=== PATIENT | male | born 1945 | race Caucasian/White ===

== ENCOUNTER 2020-05-01 20:08 | Emergency (ER) | payer MEDICARE, SELFPAY ==
--- NOTE | ~2020-05-01 | XR_ITS ---
EXAMINATION: XR chest 1V portable DATE: 05/01/2020 20:59 INDICATION: Shortness of breath. TECHNIQUE: A single frontal view of the chest was obtained. COMPARISON: CT abdomen and pelvis 06/18/2013 FINDINGS: There are patchy airspace opacities in all lung zones bilaterally. No pleural effusion or p neumothorax. The heart size is normal. IMPRESSION: 1. Diffuse lung disease, likely pneumonia such as COVID-19 pneumonia. Reviewed, dictated and finalized at location A. F LOCK OPERATOR
[2020-05-01 20:11] VITALS: BP 171/78; PULSE 67; RESP 20; TEMP 37.5; O2SAT 95
--- NOTE | 2020-05-01 20:24 | PC.NURSE ---
freda is the daughter [phone]
--- NOTE | 2020-05-01 20:44 | ECG_ITS ---
Measurements Intervals [place] Rate: 63 P: 52 SD: 174 QRS: -19 QRSD: 138 T: 26 QT: 388 QTc: 399 Interpretive Statements SINUS RHYTHM INTRAVENTRICULAR CONDUCTION DELAY BASELINE ARTIFACT- I, II, III, AVR, AVL, AVF BORDERLINE ECG Electronically Signed On 05-02-2020 6:50:06 FARM WORKER by Micheal Cárdenas D.O.
[2020-05-01 21:20] LABS: Basophils Percent Auto 0.2 % (0.2-1.2); Eosinophils Percent Auto 0.3 % (0-4.4); Hematocrit 37.2 % (42.0-52.0); Immature Granulocyte Absolute 0.08 K/mm3 (0.00-0.031); Immature Granulocyte Percent A 1.3 % (0-0.5); Lymphocytes Absolute Auto 1.15 K/mm3 (0.9-3.2); Lymphocytes Percent Auto 18.8 % (18.3-44.2); Mean Corpuscular HGB Conc 34.9 g/dl (32-36); Mean Corpuscular Volume 91.6 fl (80-100); Mean Platelet Volume 8.8 fl (7.4-10.4); Monocytes Absolute Auto 0.7 K/mm3 (0.1-0.6); Monocytes Percent Auto 10.8 % (2.6-8.5); Neutrophils Absolute Auto 4.2 K/mm3 (1.3-6.7); Neutrophils Percent Auto 68.6 % (45.5-73.1); Platelet Count Result 205 k/mm3 (150-375); Red Blood Count 4.06 M/mm3 (4.6-6.20); White Blood Count 6.1 K/mm3 (4.5-10.0)
[2020-05-01 21:33] LABS: Anion Gap 6 mmol/L (8-16); Blood Urea Nitrogen 17 mg/dL (9-20); Calcium 8.7 mg/dL (8.4-10.2); Carbon Dioxide 27 mmol/L (22-30); Chloride 95 mmol/L (98-107); Estimated CRCL calculation 62 ml/min; Estimated Glomerular Filt Rate > 60; Glucose 104 mg/dL (75-110); Potassium 4.6 mmol/L (3.4-5.0); Sodium 128 mmol/L (137-145)
--- NOTE | 2020-05-01 21:38 | ED.URI ---
HPI - URI/Sore Throat General Chief Complaint: Upper Respiratory Infection Stated Complaint: cough, + COVID, feeling worse Time Seen by Provider: 05/01/20 21:37 Source: patient Mode of arrival: ambulatory Limitations: no limitations History of Present Illness HPI Narrative: Patient is a 74 year-old male complaining of cough, nonproductive, fatigue, body aches started 1 week ago, diagnosed with Covid 4 days ago, felt better after getting a steroid shot by his doctor, but symptoms recurred today. Denies any chest pain, shortness of breath, abdominal pain, nausea vomiting diarrhea or fever. Related Data Home Medications Medication Instructions Recorded Confirmed albuterol sulfate [Ventolin HFA] INHALATION 05/01/20 amlodipine-benazepril cap 05/01/20 05/01/20 famotidine 05/01/20 lorazepam 05/01/20 omeprazole 05/01/20 pravastatin 05/01/20 promethazine-codeine ml 05/01/20 trazodone 05/01/20 Allergies Allergy/AdvReac Type Severity Reaction Status Date / Time No Known Allergies Allergy Unknown Verified 05/01/20 20:16 Review of Systems Review of Systems: All systems reviewed & are unremarkable except as noted in HPI and below Constitutional: Constitutional: Denies body ache(s), Denies chills, Denies excessive sweating, Denies fever(s), Denies headache(s), Denies lethargy, Denies weakness and Denies weight loss Eyes: Eyes: Denies blurry vision, Denies change in vision and Denies loss of vision ENT: Denies dizziness, Denies ear discharge, Denies headache(s), Denies lip swelling, Denies epistaxis, Denies nasal congestion, Denies neck pain, Denies throat swelling and Denies tongue swelling Cardiovascular: Cardiovascular: Denies chest pain, Denies chest pain at rest, Denies chest pain with activity, Denies diaphoresis, Denies rapid heart rate, Denies edema, Denies irregular heart rhythm, Denies lightheadedness, Denies palpitations, Denies dyspnea and Denies dyspnea on exertion Respiratory: Respiratory: Denies chest congestion, Denies hemoptysis, Denies dyspnea and Denies dyspnea on exertion Gastrointestinal: Gastrointestinal: Denies abdominal pain, Denies melena, Denies hematochezia, Denies diarrhea, Denies nausea, Denies vomiting and Denies hematemesis Musculoskeletal: Musculoskeletal: Denies abnormal gait, Denies deformity, Denies joint swelling, Denies limited range of motion, Denies neck pain and Denies numbness Neurologic: Denies Abnormal speech present, Denies abnormal gait, Denies confusion, Denies dizziness, Denies headache(s), Denies focal weakness, Denies loss of vision, Denies numbness, Denies Other visual disturbances, Denies Sensory deficit (Neuro) and Denies weakness Psychiatric: Psychiatric: Denies confusion, Denies depression, Denies auditory hallucinations, Denies homicidal ideation and Denies suicidal ideation Endocrine: Endocrine: Denies cold intolerance, Denies excessive sweating, Denies fatigue, Denies heat intolerance and Denies palpitations Hematologic/Lymphatic: Hematologic/Lymphatic: Denies easy bleeding and Denies easy bruising Allergic/Immunologic: Allergic/Immunologic: Denies lip swelling, Denies throat swelling and Denies tongue swelling PMFSH Family History Family History (Updated 02/21/14 @ 07:13 by DOCTOR UNKNOWN) Mother Family history of lymphoma Father Family history of malignant neoplasm Social History Social History Alcohol intake: current Gender identity (if verbalized by the patient): Male Exam Const: General: cooperative, healthy appearing, comfortable, no acute distress, well developed, alert and awake; No confusion Orientation/consciousness: oriented to person, oriented to place, oriented to time, patient oriented x3 and No confusion Limitations: no limitations HENMT: Head: normal to inspection, normocephalic and atraumatic Ears: hearing grossly normal bilaterally, TM normal on the right and TM normal on the left General nose exam: Normal external nose
[2020-05-01 22:11] VITALS: O2SAT 96
--- NOTE | 2020-05-01 22:13 | PC.NURSE ---
Per pt. permission. Updated pt. daughter Kassy on pt. status.
--- NOTE | 2020-05-01 22:13 | PC.NURSE ---
PT. [facility] number [phone]
[2020-05-01 22:31] VITALS: BP 142/95; PULSE 72; RESP 17; O2SAT 96
[2020-05-01 22:45] VITALS: BP 142/90; PULSE 70; RESP 17; O2SAT 98
== END 2020-05-01 22:45 | disposition home or self-care (01) ==
PROVIDERS: Emergency Medicine; Emergency Provider Emergency Medicine; PCP Internal Medicine
DX: U07.1 COVID-19 (principal); J12.89 Other viral pneumonia
CPT/HCPCS: 36415; 71045; 80048; 85025; 93005; 96372; 99284; J1100

== ENCOUNTER 2021-09-09 08:43 | Inpatient (IN) | payer MEDICARE, SELFPAY ==
[2021-09-09] VITALS (10 sets, daily range): BP systolic 142–161; BP diastolic 65–82; PULSE 49–65; RESP 16–97; TEMP 36.2–36.9; O2SAT 94–99; BMI 33.0
--- NOTE | 2021-09-09 | ECHO_ITS ---
Patient Info Name: Garrett Gifford Age: 76 years : 1945 Gender: Male Ht: 70 in Wt: 230 lbs BSA: 2.30 m2 HR: 59 bpm BP: 103 / 69 mmHg Technical Quality: Fair Exam Date: 09/09/2021 2:34 PM Exam Location: [facility] Pulmonary Exam Room: [facility] Patient Status: Outpatient Admit Date: 09/09/2021 Staff Ordering Physician: Bhanu Smith MD Airplane And Engine Inspector: Naz Moreno RDCS Attending Provider: Kartik Culver MD Exam Type: CA echo doppler color flow Study Info Indications - CHF Complete two-dimensional, color flow and Doppler transthoracic echocardiogram is performed. Summary 1. Complete two-dimensional, color flow and Doppler transthoracic echocardiogram is performed. 2. Left ventricular chamber dimension is normal. 3. Left ventricular systolic function is normal, estimated at 60-65%. 4. There is mildly increased left ventricular wall thickness. 5. The left ventricular diastolic function is grade I diastolic dysfunction. 6. E/e' 9 is minimally elevated. 7. Left atrial chamber dimension is mildly enlarged. 8. There is mild aortic valve sclerosis. 9. There is mild mitral valve regurgitation. 10. No pulmonary hypertension, estimated pulmonary arterial systolic pressure is 25 mmHg. Left Ventricle E/e' 9 is minimally elevated. Left ventricular chamber dimension is normal. Left ventricular systolic function is normal, estimated at 60-65%. There is mildly increased left ventricular wall thickness. The left ventricular diastolic function is grade I diastolic dysfunction. Right Ventricle Right ventricular chamber dimension is normal. Right ventricular systolic function is normal. Left Atria Left atrial chamber dimension is mildly enlarged. Right Atria Right atrial chamber dimension is normal. Aortic Valve The aortic valve is trileaflet. There is mild aortic valve sclerosis. There is no aortic valve stenosis. There is no aortic valve regurgitation. Pulmonic Valve There is no pulmonic regurgitation. Mitral Valve There is no mitral valve stenosis. There is mild mitral valve regurgitation. Tricuspid Valve There is no tricuspid valve regurgitation. No pulmonary hypertension, estimated pulmonary arterial systolic pressure is 25 mmHg. Pericardium/Pleural There is no pericardial effusion. Inferior Vena Cava Normal inferior vena cava with >50% collapse upon inspiration consistent with normal right atrial pressure, 5 mmHg. Aorta The aortic root size at the sinus of Valsalva is normal. Left Ventricular Outflow Tract Name Value Normal LVOT 2D LVOT Diameter 2.2 cm LVOT Doppler LVOT Peak Velocity 108 cm/s LVOT Peak Gradient 5 mmHg LVOT Mean Gradient 3 mmHg LVOT VTI 20 cm LVOT VTI/AV VTI Ratio 1.0 LVOT Stroke Volume 75 ml LVOT CO 17.2 l/min LVOT CI 7.5 l/min/m2 Mitral Valve
[2021-09-09 10:10] LABS: Hematocrit 41.5 % (42.0-52.0); Hemoglobin 14.2 g/dL (14.0-18.0); Mean Corpuscular HGB Conc 34.2 g/dl (32-36); Mean Corpuscular Hemoglobin 32.3 pg (26-34); Mean Corpuscular Volume 94.3 fl (80-100); Mean Platelet Volume 9.4 fl (7.4-10.4); Platelet Count Result 182 k/mm3 (150-375); Red Cell Distribution Width 13.8 % (11.5-14.5); White Blood Count 7.9 K/mm3 (4.5-10.0)
[2021-09-09 10:20] LABS: INR 1.8; Prothrombin Time 19.8 Seconds (11.1-14.7)
[2021-09-09 10:21] LABS: Partial Thromboplastin Time 38.8 SECONDS (22.3-36.8)
[2021-09-09 10:24] LABS: Alanine Aminotransferase 27 U/L (4-50); Albumin Level 4.1 g/dL (3.5-5.1); Alkaline Phosphatase 44 U/L (38-126); Anion Gap 6 mmol/L (8-16); Aspartate Amino Transferase 34 U/L (17-59); Bilirubin,Total 0.7 mg/dL (0.2-1.3); Blood Urea Nitrogen 17 mg/dL (9-20); Calcium 8.9 mg/dL (8.4-10.2); Carbon Dioxide 28 mmol/L (22-30); Chloride 104 mmol/L (98-107); Estimated Glomerular Filt Rate > 60; Glucose 131 mg/dL (65-110); Magnesium 2.1 mg/dL (1.6-2.3); Potassium 4.7 mmol/L (3.4-5.0); Sodium 138 mmol/L (137-145)
[2021-09-09 10:39] LABS: Troponin I 0.013 ng/mL (0.000-0.034)
--- NOTE | 2021-09-09 10:52 | ECG_ITS ---
Measurements Intervals [place] Rate: 57 P: 35 AL: 196 QRS: -30 QRSD: 136 T: 20 QT: 420 QTc: 410 Interpretive Statements SINUS BRADYCARDIA LEFT BUNDLE BRANCH BLOCK [120+ ms QRS DURATION, 80+ ms Q/S IN V1/V2, 85+ ms R IN I/aVL/V5/V6] COMPARED TO ECG 05/01/2020 21:21:56 SINUS BRADYCARDIA NOW PRESENT LEFT BUNDLE-BRANCH BLOCK NOW PRESENT Electronically Signed On 09-09-2021 13:14:13 CDT by Stefania Vilchis M.D.
--- NOTE | 2021-09-09 12:23 | PM.CNCAR ---
Assessment and Plan Assessment and plan (1) PAF (paroxysmal atrial fibrillation): Code(s): I48.0 - Paroxysmal atrial fibrillation Status: Acute Assessment and Plan: In normal rhythm now but has intermittent palpitations. Stop Metoprolol. Start Sotalol 80 mg BID and anticipate he will be here for 2 nights monitoring. Obtain EKG 1-2 hours after each dose. Start Eliquis 5 mg BID. [id number] 3. Obtain echo. (2) Hypersomnia: Code(s): G47.10 - Hypersomnia, unspecified Status: Acute Assessment and Plan: Will need outpatient sleep study. (3) Dyslipidemia: Code(s): E78.5 - Hyperlipidemia, unspecified Status: Acute Assessment and Plan: On Pravastatin and Fish Oil. (4) Hypertension: Code(s): I10 - Essential (primary) hypertension Status: Acute Assessment and Plan: Stable. History of Present Illness History of Present Illness Consult date/time: 09/09/21 12:23 Reason for consult: Atrial fibrillation. 76 yr old man who I saw for first time last week as an outpatient consult and PCP is Dr. Paz presented to [facility] last night for palpitations. He has a history of hypertension, dyslipidemia, Covid pneumonia. He reports having palpitations last night and went to [facility] and it was noted he was in rapid atrial fib at 130's bpm. He was then transferred here for further management. Currently he is back in sinus rhythm at 60 bpm. His fiance is at bedside. Reports he noted palpitations the last 2 months every 2 weeks lasting minutes. He admits to snoring, waking up frequently and daytime sleepiness. He is limited at walking about 1-2 blocks due to AMIN. Reports edema of both legs is constant. Denies orthopnea, PND, dizziness, chest pain, sob. Cardiovascular Procedures Echo/MUGA:: 07/01/15 Echo: EF 60%, grade II diastolic dysfunction (E/e' 11), mild LAE, mild MR, trace TR/PI, Aortic root 4. 3cm. Electrophysiology:: 09/01/21 EKG: Sinus bradycardia at 44 bpm, first degree AV block, LBBB. 05/04/21 EKG: Sinus bradycardia at 50 bpm, PVC, IVCD. Stress Tests:: 07/01/14 Lexiscan myoview: negative. Reason For Visit: Atrial Fibrillation Review of Systems Review of Systems: All systems reviewed & are unremarkable except as noted in HPI and below Constitutional: Constitutional: Reports as per HPI, Denies chills, Reports daytime sleepiness, Reports difficulty sleeping, Denies fatigue and Reports snoring Cardiovascular: Cardiovascular: Reports as per HPI, Denies chest pain, Reports irregular heart rhythm, Denies leg edema and Denies lightheadedness Respiratory: Respiratory: Reports as per HPI and Reports dyspnea Gastrointestinal: Gastrointestinal: Reports as per HPI and Denies abdominal pain Genitourinary: Genitourinary: Reports as per HPI and Denies dysuria Musculoskeletal: Musculoskeletal: Reports as per HPI Neurologic: Reports as per HPI, Denies dizziness and Denies syncope [facility] Family History Family History Mother Family history of lymphoma Father Family history of malignant neoplasm Social History Social History Smoking status: Never smoker Alcohol intake: current Gender identity (if verbalized by the patient): Male Meds Home Medications and Allergies Home Medications Medication Instructions Recorded Confirmed Type lorazepam 05/01/20 09/01/21 History omeprazole 05/01/20 09/01/21 History pravastatin 05/01/20 09/01/21 History metoprolol succinate 25 mg 25 mg PO DAILY #30 tablet 09/01/21 09/01/21 Rx tablet,extended release 24 hr Glucosamine Chondroitin 1 cap PO DAILY 09/09/21 09/09/21 History omega-3 fatty acids-fish oil 1,360 mg PO DAILY 09/09/21 09/09/21 History Allergies Allergy/AdvReac Type Severity Reaction Status Date / Time No Known Allergies Allergy Unknown Verified 09/01/21 13:19 Vital Signs Vi
[2021-09-09] MEDS: SOTALOL HCL 80 MG TABLET PO (13:14)
--- NOTE | 2021-09-09 13:40 | ADMGEN ---
This patient, Garrett Gifford, was admitted to IMU Room 204-01. Patient/family oriented to hospital policies and general routines including ID bracelet, bed and alarms, visiting hours, pain management, procedures, bathroom and other care routines, personal items, smoking policy, room service/diet, and visiting hours. Information on how to activate the Rapid Response Team has been discussed. Patient/Family are encouraged to report perceived risks to care and to ask questions if they do not understand what they are told or what they should do.
--- NOTE | 2021-09-09 14:50 | PM.IMHP ---
H&P: HPI History of Present Illness Date/Time: 09/09/21 14:51 patient is 76-year-old male with history of hypertension coronary artery disease and palpitation was recently seen by his Cardiology and was placed on Holter monitor it was suspected patient may have proximal atrial fibrillation, patient states that yesterday while they were at the restaurant had a lunch and a alcohol drain after the patient felt palpitation but this time the palpitations persisted and it was in rate 125, patient went to local emergency depart and was found to have atrial fibrillation with RVR he was started on diltiazem drip, patient converted back to sinus rhythm with bradycardia, and transferred to the hospital, the patient states is feeling much better denies any chest pain shortness of breath palpitation, to further evaluate I ordered cardiac echo and consult Cardiology further recommendation, continue to monitor Chief Complaint: palpitation Review of Systems Review of Systems: All systems reviewed & are unremarkable except as noted in HPI and below PMFSH Family History Family History Mother Family history of lymphoma Father Family history of malignant neoplasm Social History Social History Smoking status: Former smoker Tobacco type: cigarettes Alcohol intake: never Substance use: never Gender identity (if verbalized by the patient): Male Spiritual care concerns: No Meds Home Medications and Allergies Home Medications Medication Instructions Recorded Confirmed Type lorazepam 1 mg PO BID 05/01/20 09/09/21 History omeprazole 20 mg PO DAILY 05/01/20 09/09/21 History pravastatin 40 mg PO DAILY 05/01/20 09/09/21 History metoprolol succinate 25 mg 25 mg PO DAILY #30 tablet 09/01/21 09/09/21 Rx tablet,extended release 24 hr Glucosamine Chondroitin 1 cap PO DAILY 09/09/21 09/09/21 History omega-3 fatty acids-fish oil 1,360 mg PO DAILY 09/09/21 09/09/21 History Allergies Allergy/AdvReac Type Severity Reaction Status Date / Time No Known Allergies Allergy Unknown Verified 09/01/21 13:19 Vital Signs Vital Signs - 24 hr 09/09/21 08:45 09/09/21 10:00 09/09/21 12:00 Temperature 97.8 F 97.2 F L Pulse Rate 56 L 55 L 58 L Respiratory Rate 20 18 Blood Pressure 142/80 H 154/78 H Pulse Oximetry 99 98 Exam Narrative: moderately obese Patient is comfortable, NAD HEENT: eyes are clear and none icteric LUNGS:CTA HEART: RR S1S2 ABD: BS+, Soft and nontender Lower extremities: no edema SKIN: nonjaundiced Neuro: grossly intact. H&P: Results Labs Labs: Short CBC 09/09/21 Range/Units 10:03 WBC 7.9 (4.5-10.0) K/mm3 Hgb 14.2 (14.0-18.0) g/dL Hct 41.5 L (42.0-52.0) % Plt Count 182 (150-375) k/mm3 BMP 09/09/21 10:03 Sodium 138 Potassium 4.7 Chloride 104 Carbon Dioxide 28 BUN 17 Creatinine 0.90 Glucose 131 H Calcium 8.9 Cardiac Enzymes 09/09/21 Range/Units 10:03 Troponin I 0.013 (0.000-0.034) ng/mL Liver Function 09/09/21 Range/Units 10:03 Total Bilirubin 0.7 (0.2-1.3) mg/dL AST 34 (17-59) U/L ALT 27 (4-50) U/L Alkaline Phosphatase 44 (38-126) U/L Albumin 4.1 (3.5-5.1) g/dL Assessment and Plan Assessment and plan (1) PAF (paroxysmal atrial fibrillation): Code(s): I48.0 - Paroxysmal atrial fibrillation Status: Acute Assessment and Plan: patient is 76-year-old male with history of hypertension coronary artery disease and palpitation was recently seen by his Cardiology and was placed on Holter monitor it was suspected patient may have proximal atrial fibrillation, patient states that yesterday while they were at the restaurant had a lunch and a alcohol drain after the patient felt palpitation but this time the palpitations persisted and it was in rate 125, patient went to local emergency depart and
--- NOTE | 2021-09-09 15:00 | ECG_ITS ---
Measurements Intervals [place] Rate: 49 P: 91 SD: 206 QRS: -24 QRSD: 139 T: 5 QT: 441 QTc: 401 Interpretive Statements SINUS BRADYCARDIA WITH OCCASIONAL SUPRAVENTRICULAR PREMATURE COMPLEXES INTRAVENTRICULAR CONDUCTION DELAY [130+ ms QRS DURATION] COMPARED TO ECG 09/09/2021 11:21:17 INTRAVENTRICULAR CONDUCTION DELAY NOW PRESENT Electronically Signed On 09-09-2021 20:28:36 CDT by Stefania Vilchis M.D.
[2021-09-09] MEDS: amLODIPine BESYLATE 5 MG TABLET PO (18:24)
[2021-09-09] MEDS: APIXABAN 5 MG TABLET PO (20:18)
[2021-09-09] MEDS: MELATONIN 5 MG TABLET PO (20:18)
--- NOTE | 2021-09-09 21:44 | PC.NURSE ---
patient states he is concerned about taking the amount of Sotalol prescribed for this evening due to his heart rate being in the 50's. Dr Cárdenas notified and educated patient on importance of loading doses. Patient still insistent upon decreasing the dose. Dr Cárdenas provided orders to this nurse to change Sotalol dosage to 40mg BID.
[2021-09-09] MEDS: SOTALOL HCL 40 MG TABLET PO (22:06)
[2021-09-10] VITALS (14 sets, daily range): BP systolic 127–175; BP diastolic 67–83; PULSE 42–61; RESP 16–22; TEMP 35.6–37.1; O2SAT 94–99
[2021-09-10 05:48] LABS: Hemoglobin 13.8 g/dL (14.0-18.0); Mean Corpuscular HGB Conc 33.7 g/dl (32-36); Mean Corpuscular Hemoglobin 32.6 pg (26-34); Mean Corpuscular Volume 96.9 fl (80-100); Mean Platelet Volume 9.1 fl (7.4-10.4); Platelet Count Result 172 k/mm3 (150-375); Red Blood Count 4.23 M/mm3 (4.6-6.20); White Blood Count 7.1 K/mm3 (4.5-10.0)
[2021-09-10 06:11] LABS: Anion Gap 4 mmol/L (8-16); Blood Urea Nitrogen 22 mg/dL (9-20); Calcium 8.9 mg/dL (8.4-10.2); Carbon Dioxide 30 mmol/L (22-30); Chloride 101 mmol/L (98-107); Estimated CRCL calculation 60 ml/min; Estimated Glomerular Filt Rate > 60; Glucose 104 mg/dL (65-110); Magnesium 2.1 mg/dL (1.6-2.3); Potassium 4.1 mmol/L (3.4-5.0); Sodium 135 mmol/L (137-145)
--- NOTE | 2021-09-10 06:30 | ECG_ITS ---
Measurements Intervals [place] Rate: 46 P: 87 NE: 208 QRS: -18 QRSD: 139 T: 19 QT: 445 QTc: 392 Interpretive Statements SINUS BRADYCARDIA INTRAVENTRICULAR CONDUCTION DELAY [130+ ms QRS DURATION] POSSIBLE LEFT VENTRICULAR HYPERTROPHY [VOLTAGE CRITERIA PLUS LAE OR QRS WIDENING] COMPARED TO ECG 09/09/2021 15:06:48 NO SIGNIFICANT CHANGES Electronically Signed On 09-10-2021 18:44:07 CDT by Stefania Vilchis M.D.
--- NOTE | 2021-09-10 08:11 | PM.PNCARD ---
Progress Note: A&P Assessment and Plan (1) PAF (paroxysmal atrial fibrillation): Code(s): I48.0 - Paroxysmal atrial fibrillation Status: Acute Assessment and Plan: In normal rhythm now but has intermittent palpitations. Stopped Metoprolol. Started Sotalol 80 mg BID, but due to concern for bradycardia, dose lowered to 40 mg BID and anticipate 1 more night of monitoring. Obtain EKG 1-2 hours after each dose. Started Eliquis 5 mg BID. [id number] 3. 3 Echo shows EF 60-65%, mild LAE, grade I diastolic dysfunction (E/e' 9), mild MR. (2) Hypersomnia: Code(s): G47.10 - Hypersomnia, unspecified Status: Acute Assessment and Plan: Will need outpatient sleep study. (3) Dyslipidemia: Code(s): E78.5 - Hyperlipidemia, unspecified Status: Acute Assessment and Plan: On Pravastatin and Fish Oil. (4) Hypertension: Code(s): I10 - Essential (primary) hypertension Status: Acute Assessment and Plan: High. Started Amlodipine 10 mg daily and Hydralazine 25 mg TID. Subjective Date/time seen: 09/10/21 08:11 Denies chest pain or sob or palpitations. Exam Const: General: cooperative, healthy appearing and comfortable Nutritional Appearance: obese Resp: Auscultation: clear to auscultation bilaterally, no crackles, no rales, no rhonchi and no wheezes Cardio: Jugular venous distension: no JVD Rate: bradycardic Rhythm: regular rhythm Heart sounds: no murmurs Peripheral pulses: dorsalis pedis present GI: GI Palp: No abdominal tenderness and Yes Soft to palpation Neuro: General: oriented to person, oriented to place and oriented to time Extrem: Right lower extremity: no edema Left lower extremity: no edema Objective Data Vital Signs Vital Signs: Vital Signs - 24 hr 09/09/21 08:45 09/09/21 10:00 09/09/21 12:00 Temperature 97.8 F 97.2 F L Pulse Rate 56 L 55 L 65 Respiratory Rate 20 18 Blood Pressure 142/80 H 154/78 H Pulse Oximetry 99 98 09/09/21 14:00 09/09/21 16:00 09/09/21 16:02 Temperature 97.7 F Pulse Rate 63 49 L 49 L Respiratory Rate 97 H Blood Pressure 143/82 H Pulse Oximetry 97 09/09/21 18:00 09/09/21 20:00 09/09/21 22:00 Temperature 98.5 F Pulse Rate 53 L 54 L 55 L Respiratory Rate 16 Blood Pressure 161/65 H Pulse Oximetry 98 94 09/09/21 22:06 09/10/21 00:00 09/10/21 02:00 Temperature 98.5 F Pulse Rate 52 L 43 L 45 L Respiratory Rate 20 Blood Pressure 162/76 H Pulse Oximetry 95 09/10/21 04:00 09/10/21 06:00 Temperature 96.4 F L Pulse Rate 44 L 42 L Respiratory Rate 16 Blood Pressure 175/72 H Pulse Oximetry 99 Intake/Output Intake/Output: Intake & Output 09/07/21 09/08/21 09/09/21 09/10/21 23:59 23:59 23:59 23:59 Intake Total 1030 300 Balance 1030 300 Meds/Results Medications: Active Medications Generic Name Dose Route Start Last Admin Trade Name Freq PRN Reason Stop Dose Admin Amlodipine Besylate 10 mg 09/10/21 09:00 Amlodipine Besylate 5 Mg Tablet PO QAM KARIN Apixaban 5 mg 09/09/21 21:00 09/09/21 20:18 Apixaban 5 Mg Tablet PO 5 mg Q12HR KARIN Administration Hydralazine HCl 25 mg 09/10/21 09:00 Hydralazine Hcl 25 Mg Tablet PO TID KARIN Melatonin 5 mg 09/09/21 21:00 09/09/21 20:18 Melatonin 5 Mg Tablet PO 5 mg HS KARIN Administration Perflutren Lipid Microsphere 0 ml 09/09/21 09:57 Perflutren Lipid Microspheres 1.5 Ml Vial Diluted To 10 Ml Total Volume IV PUSH ONCE PRN adequate visualization Protocol Sotalol HCl 40 mg 09/10/21 09:00 Sotalol Hcl 40 Mg Tablet PO Q12HR KARIN Labs Labs: Laboratory Results - last 24 hr 09/09/21 09/09/21 09/09/21 10:03 10:03 10:03 WBC 7.9 RBC 4.40 L Hgb 14.2 Hct 41.5 L MCV 94.3 MCH 32.3 MCHC 34.2 RDW 13.8 Plt Count 182 MPV 9.4 PT 19.8 H INR 1.8 APTT 38.8 H Sodium 138 Potassium 4.7 Chlor
[2021-09-10] MEDS: SOTALOL HCL 40 MG TABLET PO ×2 (10:02→20:06)
[2021-09-10] MEDS: APIXABAN 5 MG TABLET PO ×2 (10:02→20:05)
[2021-09-10] MEDS: amLODIPine BESYLATE 5 MG TABLET 10 MG PO (10:28)
[2021-09-10] MEDS: hydrALAZINE HCL 25 MG TABLET PO ×3 (10:28→18:01)
--- NOTE | 2021-09-10 14:29 | PM.IMPN ---
Progress Note: A&P Assessment and Plan (1) PAF (paroxysmal atrial fibrillation): Code(s): I48.0 - Paroxysmal atrial fibrillation Status: Acute Assessment and Plan: patient is 76-year-old male with history of hypertension coronary artery disease and palpitation was recently seen by his Cardiology and was placed on Holter monitor it was suspected patient may have proximal atrial fibrillation, patient states that yesterday while they were at the restaurant had a lunch and a alcohol drain after the patient felt palpitation but this time the palpitations persisted and it was in rate 125, patient went to local emergency depart and was found to have atrial fibrillation with RVR he was started on diltiazem drip, patient converted back to sinus rhythm with bradycardia, and transferred to the hospital, the patient states is feeling much better denies any chest pain shortness of breath palpitation, to further evaluate I ordered cardiac echo and consult Cardiology further recommendation, continue to monitor. patient is admitted as observation status. 09/10/2021 interval history: patient remains clinically stable was seen by his Cardiology started the patient on sotalol 80 mg b.i.d. however patient's heart rate is Jaun, lower the sotalol to 40 mg b.i.d., patient denies any complaint of chest pain shortness of breath palpitation, discussed with Cardiology will monitor patient overnight and possible discharge patient home tomorrow. (2) Hypersomnia: Code(s): G47.10 - Hypersomnia, unspecified Status: Acute Assessment and Plan: patient is overweight most likely patient has sleep apnea he will need sleep study as outpatient (3) Dyslipidemia: Code(s): E78.5 - Hyperlipidemia, unspecified Status: Acute Assessment and Plan: will continue home regimen and monitor (4) Hypertension: Code(s): I10 - Essential (primary) hypertension Status: Acute Assessment and Plan: will continue home regimen and monitor Subjective Date/time seen: 09/10/21 14:29 HPI-patient is 76-year-old male with history of hypertension coronary artery disease and palpitation was recently seen by his Cardiology and was placed on Holter monitor it was suspected patient may have proximal atrial fibrillation, patient states that yesterday while they were at the restaurant had a lunch and a alcohol drain after the patient felt palpitation but this time the palpitations persisted and it was in rate 125, patient went to local emergency depart and was found to have atrial fibrillation with RVR he was started on diltiazem drip, patient converted back to sinus rhythm with bradycardia, and transferred to the hospital, the patient states is feeling much better denies any chest pain shortness of breath palpitation, to further evaluate I ordered cardiac echo and consult Cardiology further recommendation, continue to monitor Chief Complaint: palpitation. 09/10/2021 interval history: patient remains clinically stable was seen by his Cardiology started the patient on sotalol 80 mg b.i.d. however patient's heart rate is Jaun, lower the sotalol to 40 mg b.i.d., patient denies any complaint of chest pain shortness of breath palpitation, discussed with Cardiology will monitor patient overnight and possible discharge patient home tomorrow. Review of Systems Review of Systems: All systems reviewed & are unremarkable except as noted in HPI and below Exam Narrative: moderately obese Patient is comfortable, NAD HEENT: eyes are clear and none icteric LUNGS:CTA HEART: RR S1S2 ABD: BS+, Soft and nontender Lower extremities: no edema SKIN: nonjaundiced Neuro: grossly intact. Objective Data Vital Signs Vital Signs: Vital Signs - 24 hr 09/09/21 16:00 09/09/21 16:02 09/09/21 18:00 Temperature 97.7 F Pulse Rate 49 L 49 L 53 L Respiratory Rate 97 H Blood Pressure 143/82 H Pulse Oximetry 97 09/09/21 20:00 09/09/21
[2021-09-10] MEDS: MELATONIN 5 MG TABLET PO (22:28)
[2021-09-11] VITALS (8 sets, daily range): BP systolic 147–156; BP diastolic 72–84; PULSE 46–60; RESP 14–20; TEMP 35.8–36.4; O2SAT 97–98
[2021-09-11 05:35] LABS: Hematocrit 41.9 % (42.0-52.0); Hemoglobin 13.9 g/dL (14.0-18.0); Mean Corpuscular HGB Conc 33.2 g/dl (32-36); Mean Corpuscular Volume 96.3 fl (80-100); Mean Platelet Volume 9.2 fl (7.4-10.4); Platelet Count Result 181 k/mm3 (150-375); Red Blood Count 4.35 M/mm3 (4.6-6.20); Red Cell Distribution Width 13.5 % (11.5-14.5); White Blood Count 6.4 K/mm3 (4.5-10.0)
[2021-09-11 05:47] LABS: Anion Gap 5 mmol/L (8-16); Blood Urea Nitrogen 21 mg/dL (9-20); Calcium 8.6 mg/dL (8.4-10.2); Carbon Dioxide 25 mmol/L (22-30); Chloride 101 mmol/L (98-107); Estimated CRCL calculation 65 ml/min; Estimated Glomerular Filt Rate > 60; Glucose 102 mg/dL (65-110); Magnesium 2.1 mg/dL (1.6-2.3); Sodium 131 mmol/L (137-145)
--- NOTE | 2021-09-11 06:27 | ECG_ITS ---
Measurements Intervals [place] Rate: 59 P: 58 VT: 197 QRS: -26 QRSD: 140 T: 57 QT: 414 QTc: 413 Interpretive Statements SINUS BRADYCARDIA INCOMPLETE LEFT BUNDLE BRANCH BLOCK COMPARED TO ECG 09/10/2021 11:11:31 NO SIGNIFICANT CHANGES Electronically Signed On 09-11-2021 16:09:56 CDT by Clay Carrington M.D.
--- NOTE | 2021-09-11 07:52 | PM.PNCARD ---
Progress Note: A&P Assessment and Plan (1) PAF (paroxysmal atrial fibrillation): Code(s): I48.0 - Paroxysmal atrial fibrillation Status: Acute Assessment and Plan: In normal rhythm now but has intermittent palpitations. Stopped Metoprolol. Started Sotalol 80 mg BID, but due to concern for bradycardia, dose lowered to 40 mg BID and anticipate 1 more night of monitoring. Obtain EKG 1-2 hours after each dose. Started Eliquis 5 mg BID. [id number] 3. 3 Echo shows EF 60-65%, mild LAE, grade I diastolic dysfunction (E/e' 9), mild MR. After morning dose of Sotalol and EKG and if OK, may d/c home from cardiology standpoint. F/U with me in 1 week. (2) Hypersomnia: Code(s): G47.10 - Hypersomnia, unspecified Status: Acute Assessment and Plan: Will need outpatient sleep study. (3) Dyslipidemia: Code(s): E78.5 - Hyperlipidemia, unspecified Status: Acute Assessment and Plan: On Pravastatin and Fish Oil. (4) Hypertension: Code(s): I10 - Essential (primary) hypertension Status: Acute Assessment and Plan: Stable. On Amlodipine 10 mg daily and Hydralazine 25 mg TID. Subjective Date/time seen: 09/11/21 07:52 Denies chest pain, sob, palpitations. Feels great. Exam Const: General: cooperative, healthy appearing and comfortable Nutritional Appearance: obese Resp: Auscultation: clear to auscultation bilaterally, no crackles, no rales, no rhonchi and no wheezes Cardio: Jugular venous distension: no JVD Rate: bradycardic Rhythm: regular rhythm Heart sounds: no murmurs Peripheral pulses: dorsalis pedis present GI: GI Palp: No abdominal tenderness and Yes Soft to palpation Neuro: General: oriented to person, oriented to place and oriented to time Extrem: Right lower extremity: edema Left lower extremity: edema Other: Trace edema of legs Objective Data Vital Signs Vital Signs: Vital Signs - 24 hr 09/10/21 08:00 09/10/21 10:00 09/10/21 10:02 Temperature 96.9 F L Pulse Rate 51 L 52 L 51 L Respiratory Rate 20 Blood Pressure 175/83 H Pulse Oximetry 97 09/10/21 12:00 09/10/21 14:00 09/10/21 16:00 Temperature 97.8 F 98.7 F Pulse Rate 50 L 53 L 50 L Respiratory Rate 20 22 H Blood Pressure 133/83 127/67 Pulse Oximetry 98 98 09/10/21 20:00 09/10/21 20:06 09/10/21 22:00 Temperature 96.7 F L Pulse Rate 59 L 61 54 L Respiratory Rate 20 Blood Pressure 146/81 H Pulse Oximetry 98 09/10/21 23:45 09/11/21 00:00 09/11/21 02:00 Temperature 96.0 F L Pulse Rate 51 L 48 L 46 L Respiratory Rate 16 Blood Pressure 143/77 H Pulse Oximetry 94 09/11/21 04:00 09/11/21 06:00 Temperature 96.4 F L Pulse Rate 46 L 49 L Respiratory Rate 16 Blood Pressure 155/79 H Pulse Oximetry 97 Intake/Output Intake/Output: Intake & Output 09/08/21 09/09/21 09/10/21 09/11/21 23:59 23:59 23:59 23:59 Intake Total 1030 1370 400 Balance 1030 1370 400 Meds/Results Medications: Active Medications Generic Name Dose Route Start Last Admin Trade Name Freq PRN Reason Stop Dose Admin Amlodipine Besylate 10 mg 09/10/21 09:00 09/10/21 10:28 Amlodipine Besylate 5 Mg Tablet PO 10 mg QAM KARIN Administration Apixaban 5 mg 09/09/21 21:00 09/10/21 20:05 Apixaban 5 Mg Tablet PO 5 mg Q12HR KARIN Administration Hydralazine HCl 25 mg 09/10/21 09:00 09/10/21 18:01 Hydralazine Hcl 25 Mg Tablet PO 25 mg TID KARIN Administration Melatonin 5 mg 09/09/21 21:00 09/10/21 22:28 Melatonin 5 Mg Tablet PO 5 mg HS KARIN Administration Perflutren Lipid Microsphere 0 ml 09/09/21 09:57 Perflutren Lipid Microspheres 1.5 Ml Vial Diluted To 10 Ml Total Volume IV PUSH ONCE PRN adequate visualization Protocol Sotalol HCl 40 mg 09/10/21 09:00 09/10/21 20:06 Sotalol Hcl 40 Mg Tablet PO 40 mg Q12HR KARIN Administration Labs Labs: Laboratory Results - last 24 hr 09/11/21
[2021-09-11] MEDS: APIXABAN 5 MG TABLET PO (09:46)
[2021-09-11] MEDS: SOTALOL HCL 40 MG TABLET PO (09:46)
[2021-09-11] MEDS: hydrALAZINE HCL 25 MG TABLET PO ×2 (09:46→14:32)
[2021-09-11] MEDS: amLODIPine BESYLATE 5 MG TABLET 10 MG PO (09:47)
--- NOTE | 2021-09-11 10:55 | PCCCNOTE ---
On 09/11/21, the student, [Lizabeth Campbell], provided care and completed [facility] documentation on this patient. I have reviewed the student's documentation and agree with the findings.
--- NOTE | 2021-09-11 11:45 | ECG_ITS ---
Measurements Intervals [place] Rate: 48 P: 84 PA: 204 QRS: -22 QRSD: 142 T: 9 QT: 449 QTc: 404 Interpretive Statements SINUS BRADYCARDIA INCOMPLETE LEFT BUNDLE BRANCH BLOCK [120+ ms QRS DURATION, 80+ ms Q/S IN V1/V2, 85+ ms R IN I/aVL/V5/V6] COMPARED TO ECG 09/11/2021 09:27:05 NO SIGNIFICANT CHANGES Electronically Signed On 09-11-2021 16:14:37 CDT by Clay Carrington M.D.
--- NOTE | 2021-09-11 14:00 | PM.DS ---
DS: Admitting Diagnosis Discharge Date 09/11/2021 Admitting Diagnosis palpitation DS: Discharge Diagnosis Discharge Diagnosis (1) PAF (paroxysmal atrial fibrillation): Code(s): I48.0 - Paroxysmal atrial fibrillation Status: Acute Assessment and Plan: patient is 76-year-old male with history of hypertension coronary artery disease and palpitation was recently seen by his Cardiology and was placed on Holter monitor it was suspected patient may have proximal atrial fibrillation, patient states that yesterday while they were at the restaurant had a lunch and a alcohol drain after the patient felt palpitation but this time the palpitations persisted and it was in rate 125, patient went to local emergency depart and was found to have atrial fibrillation with RVR he was started on diltiazem drip, patient converted back to sinus rhythm with bradycardia, and transferred to the hospital, the patient states is feeling much better denies any chest pain shortness of breath palpitation, to further evaluate I ordered cardiac echo and consult Cardiology further recommendation, continue to monitor. patient is admitted as observation status. 09/10/2021 interval history: patient remains clinically stable was seen by his Cardiology started the patient on sotalol 80 mg b.i.d. however patient's heart rate is Jaun, lower the sotalol to 40 mg b.i.d., patient denies any complaint of chest pain shortness of breath palpitation, discussed with Cardiology will monitor patient overnight and possible discharge patient home tomorrow. (2) Hypersomnia: Code(s): G47.10 - Hypersomnia, unspecified Status: Acute Assessment and Plan: patient is overweight most likely patient has sleep apnea he will need sleep study as outpatient (3) Dyslipidemia: Code(s): E78.5 - Hyperlipidemia, unspecified Status: Acute Assessment and Plan: will continue home regimen and monitor (4) Hypertension: Code(s): I10 - Essential (primary) hypertension Status: Acute Assessment and Plan: will continue home regimen and monitor DS: Summary Hospital Course Reason for hospitalization: patient is 76-year-old male with history of hypertension coronary artery disease and palpitation was recently seen by his Cardiology and was placed on Holter monitor it was suspected patient may have proximal atrial fibrillation, patient states that yesterday while they were at the restaurant had a lunch and a alcohol drain after the patient felt palpitation but this time the palpitations persisted and it was in rate 125, patient went to local emergency depart and was found to have atrial fibrillation with RVR he was started on diltiazem drip, patient converted back to sinus rhythm with bradycardia, and transferred to the hospital, the patient states is feeling much better denies any chest pain shortness of breath palpitation, to further evaluate I ordered cardiac echo and consult Cardiology further recommendation, continue to monitor Chief Complaint: palpitation Hospital Course: patient is 76-year-old male with history of hypertension coronary artery disease and palpitation was recently seen by his Cardiology and was placed on Holter monitor it was suspected patient may have proximal atrial fibrillation, patient states that yesterday while they were at the restaurant had a lunch and a alcohol drain after the patient felt palpitation but this time the palpitations persisted and it was in rate 125, patient went to local emergency depart and was found to have atrial fibrillation with RVR he was started on diltiazem drip, patient converted back to sinus rhythm with bradycardia, and transferred to the hospital, the patient states is feeling much better denies any chest pain shortness of breath palpitation, to further evaluate I ordered cardiac echo and consult Cardiology further recommendation, continue to monitor. patient is admitted as observation
== END 2021-09-11 14:55 | disposition home or self-care (01) | DRG 310 ==
PROVIDERS: Admitting Provider Internal Medicine; PCP Internal Medicine; Visit Provider Family Medicine
DX: I48.0 Paroxysmal atrial fibrillation (principal); G47.10 Hypersomnia, unspecified; E78.5 Hyperlipidemia, unspecified; I10 Essential (primary) hypertension; Z86.16 Personal history of COVID-19; I25.10 Atherosclerotic heart disease of native coronary artery without angina pectoris; R00.1 Bradycardia, unspecified; Z79.899 Other long term (current) drug therapy; Z80.7 Family history of other malignant neoplasms of lymphoid, hematopoietic and related tissues
CPT/HCPCS: 36415; 80048; 80053; 83735; 84484; 85027; 85610; 85730; 93005; 93306; 94762; A9270; G0378

== ENCOUNTER 2021-10-20 14:18 | Outpatient (CLI) | payer MEDICARE, SELFPAY ==
--- NOTE | 2021-11-01 22:05 | WPDSLEEPSTUD ---
Sleep Study Date of Study: 10/20/21 Ordering Provider: Micheal Cárdenas DO Interpreting Physician: Yue Doty DO Sleep Study Type: Polysomnogram Height: 1.78 m Weight: 99.79 kg Body Mass Index: 31.5 Neck Circumference (inches): 20 Greer: 11 Reason for Sleep Study Unrefreshing sleep and daytime somnolence Sleep History The patient is a 76 y/o male with HTN, dyslipidemia, atrial fibrillation, GERD, anxiety and history of tobacco abuse that had a sleep study ordered by his hob grinder for evaluation of sleep apnea. The patient frequently awakens from sleep short of breath. He occasionally awakens at night with heartburn, belching or cough. He constantly snores loud enough that others complain. He constantly has trouble sleeping when he has a cold. He constantly wakes up gasping for air throughout the night. He constantly has breathing problems at night observed by himself or others. He denies sweating excessively at night. He occasionally has heart palpitations or irregular heartbeats during the night. He occasionally falls asleep during the day but never while driving. He occasionally experiences loss of muscle tone when extremely emotional. He denies sleep paralysis. He occasionally experiences vivid dreamlike scenes upon awakening or falling asleep. He occasionally feels afraid of going to sleep. He occasionally has nightmares. He occasionally remembers his dreams. He denies having thoughts racing through his mind. He occasionally feels sad or depressed. He occasionally has anxiety. He denies having muscular tension. He denies noticing parts of his body jerk. He occasionally kicks during the night. He denies having crawling and aching feelings in his legs. He rarely has leg pain during the night. He denies grinding his teeth during sleep and awakening with morning jaw pain. He denies being bothered by pain during the day but is occasionally awakened by pain during the night. He frequently wakes up feeling stiff in the morning. He frequently wakes up with sore or achy muscles. He rarely wakes up with pain in the neck, spine and other joints. He goes to bed between 10 and 10:30 p.m. on both weekdays and weekends. He takes in 5-10 minutes to fall asleep. He will wake up a couple times throughout the night to urinate. He wakes up at 7:00 a.m. on both weekdays and weekends. He typically gets 5 hours of sleep per night. He does not stay in bed after waking up in the morning. He currently lives alone. He will drink decaffeinated tea within 2 hours of bedtime. He does not engage in physical exercise before bedtime. He will watch television before falling asleep. He does not take naps in afternoon or the evening. He will drink a caffeinated soda occasionally. He denies tobacco, alcohol and recreational drug use. [facility] Past Medical History Medical History Dyslipidemia Hypertension PAT (paroxysmal atrial tachycardia) Family History Family History Mother Family history of lymphoma Father Family history of malignant neoplasm Social History Social History Smoking status: Former smoker Tobacco type: cigarettes Alcohol intake: never Substance use: never Gender identity (if verbalized by the patient): Male Spiritual care concerns: No Medications Home Medications Medication Instructions Recorded Confirmed Type lorazepam 1 mg PO BID 05/01/20 10/15/21 History omeprazole 20 mg PO DAILY 05/01/20 10/15/21 History pravastatin 40 mg PO DAILY 05/01/20 10/15/21 History Glucosamine Chondroitin 1 cap PO DAILY 09/09/21 10/15/21 History omega-3 fatty acids-fish oil 1,360 mg PO DAILY 09/09/21 10/15/21 History amlodipine [Norvasc] 10 mg PO QAM #30 tablet 09/11/21 10/15/21 Rx melatonin 5 mg PO HS #30 tablet 09/11/21 10/15/21 Rx sota
[2021-11-01 22:15] VITALS: BMI 31.5
== END 2021-10-21 06:16 | disposition home or self-care (01) ==
LOC: ANHCSM 14:18
PROVIDERS: PCP Internal Medicine; Visit Provider Internal Medicine Cardiovascular Disease
DX: G47.10 Hypersomnia, unspecified (principal); G47.30 Sleep apnea, unspecified; G47.31 Primary central sleep apnea
CPT/HCPCS: 95810

== ENCOUNTER 2022-09-02 00:47 | Day surgery (SDC) | payer MEDICARE, SELFPAY ==
--- NOTE | 2022-08-30 10:24 | PC.NURSE ---
Report to the Outpatient Waiting Room, entrance under the green pavilion located off [address], at time __0700____ on date ____09/02/22___. Planned Procedure Time: __0900 . Time changes happen often and if your time is changed the preop area will call you the afternoon before. - You and your visitor will be asked to self-screen and do not enter if you have any COVID symptoms. - Only one visitor is requested with a max of two and NO children visitors are allowed at this time. - The patient visitor may be requested to leave or wait in car when not with patient due to distancing restrictions. - A mask is optional within the hospital at this time. Patients may have clear liquids (water, carbonated beverages, clear teas, apple juice) until 3 hours prior to surgery with a maximum of 20 ounces. - No food from midnight until time of surgery - Infants may have breast milk until 4 hours before surgery, infant formula 6 hours prior to surgery. - Children will be allowed to drink immediately following surgery. If applicable, please bring a bottle or sippy cup to assist with drinking. Juice, water, soda, and popsicles are readily available. For infants on formula, please bring formula the day of surgery. Pacifiers are allowed. Take the following medications with a SIP of water the morning of surgery: __INHALER,HYDRALAZINE,METOPROLOL DO NOT STOP ANY OF YOUR OTHER PRESCRIPTION MEDICATIONS PRIOR TO SURGERY ?EXCEPT THE FOLLOWING Medications to discontinue per physician ____PASCUALTO PER DR REED. MESSAGE LEFT WITH RAMSES, ALL VITAMINS/SUPPLEMENTS 3 DAYS PRE OP. LAST DOSE 08/29/22 Please no make-up, nail armenian, hairspray, perfume, deodorant, or body powder the day of surgery. No jewelry (including any body piercings) or valuables the day of surgery, leave them at home. Please take a shower or bath the night before, or the morning of, surgery with an antibacterial soap. Wear comfortable, loose fitting clothing. Children are encouraged to wear pajamas. - Jewelry must be removed prior to entering the operating room. Rings and piercings that are not removed may be cut off. - The hospital will not accept responsibility for valuables. - Please leave all valuables, including medications, at home the day of surgery. If you are going home after surgery, a licensed chain saw driver must drive you home. - NO public transportation without another adult if you receive anesthesia. - We recommend that an adult stay with you for 24 hours following discharge. - We also recommend that you do not drive, make important decision, drink alcoholic beverages, or take any drugs that were not prescribed by your health care provider for at least 24 hours after your discharge time. For Pediatric surgeries, we recommend two adults accompany the child home. Follow any additional instructions given to you from your surgeon. If you or anyone in your household have experienced Covid symptoms in the past week, please notify your surgeon or the nurse liaison at the phone number below for possible testing. Telephone instructions given to __PATIENT AND SPOUSE JOMAR and asked if any additional questions and then verbalized understanding. Patient advised to call surgeon office or pre surgery nurse liaison [phone] if any additional questions.
[2022-08-30 10:31] VITALS: BMI 29.1
--- NOTE | 2022-09-01 09:59 | WPDANESEPPF ---
Anes - Initial Pre Proc Eval Procedure: Operation Date: 09/02/22 09:00 Proposed Procedures p Cystoscopy, Right Ureteroscopy, Possible Right Retrograde Pyelogram, Possible Right Stone Extraction, Possible Right Stent Placement, Possible Holmium Laser - Brayan Romo MD Date/Time: 09/01/22 09:59 Surgeon: Brayan Romo MD Pre Op Diagnosis: right ureteral stone Patient Data Age: 77 Gender: M Height: 1.78 m Weight: 92.1 kg Allergies Allergy/AdvReac Type Severity Reaction Status Date / Time doxycycline AdvReac Intermediate Nausea Verified 08/31/22 13:13 Home Medications Medication Instructions Recorded Confirmed Type metoprolol tartrate 25 mg tablet See Rx Instructions .Route 12/10/21 08/31/22 Rx .COMPLEX #30 tabs rivaroxaban 20 mg tablet (Xarelto) 20 mg PO DAILY 04/06/22 08/31/22 History omeprazole 20 mg capsule,delayed 20 mg PO DAILY #90 caps 05/17/22 08/31/22 Rx release hydralazine 50 mg tablet 50 mg PO TID #270 tabs 08/02/22 08/31/22 Rx lorazepam 1 mg tablet 1 mg PO BID #60 tabs 08/02/22 08/31/22 Rx pravastatin 40 mg tablet See Rx Instructions .Route 08/02/22 08/31/22 Rx .COMPLEX #90 tabs benazepril 20 mg tablet 20 mg PO DAILY #90 tabs 08/31/22 08/31/22 Rx [id number] tablet PO 08/31/22 08/31/22 History 750 mg-100 mg-125 mg-1.65 mg tablet (Glucosamine Chondroit Complx Advan) omega-3 fatty acids 500 mg capsule 500 mg PO DAILY 08/31/22 08/31/22 History Patient hx anesthesia problems: none Family hx anesthesia problems: none Results Review: All pre-operative results and documents have been reviewed as part of the pre-operative evaluation. [facility] Past Medical History Medical History (Updated 09/01/22 @ 10:00 by Philip Garcia MD) Anxiety COPD (chronic obstructive pulmonary disease) Dyslipidemia Hearing loss History of brachytherapy History of stress test Hypertension Inguinal hernia Kidney calculi LAM (obstructive sleep apnea) PAF (paroxysmal atrial fibrillation) PAT (paroxysmal atrial tachycardia) Tachycardia Ventral hernia Surgical History Surgical History (Updated 08/31/22 @ 13:51 by Percy Will MD) H/O lithotripsy History of cataract removal with insertion of prosthetic lens History of knee replacement right knee 2006 Family History Family History Mother Family history of lymphoma Father Family history of malignant neoplasm Social History Social History Smoking packs per day: 0.5 Smoking cigarettes per day: 10.0 Years smoked: 20 Smoking pack-years: 10.00 Smoking status: Former smoker Tobacco type: cigarettes Smoking end date: 06/27/89 Alcohol intake: current Alcohol use details: Occasionally Substance use: never Living arrangements: with family Occupation/Education: occupation Gender identity (if verbalized by the patient): Male Spiritual care concerns: No Anes - Eval Final PreProcedure Day of Procedure 09/01/22 09:59 Patient weight: overweight Heart: regular rate and rhythm Lungs: clear to auscultation and normal air movement Airway: Mallampati scale class II Neurological: alert and oriented Last oral intake: >/= 8 hours ASA classification: III Emergent: no Anesthetic plan: proceed Anesthesia type and monitoring: general LMA Results Review: All pre-operative results and documents have been reviewed as part of the pre-operative evaluation. Informed Consent: The patient's anesthetic plan and its attendant risks and benefits were discussed with the patient/family/POA. Questions were solicited and answers provided to the satisfaction of the patient/family/POA.
[2022-09-02] VITALS (8 sets, daily range): BP systolic 153–181; BP diastolic 68–90; PULSE 52–58; RESP 14–18; TEMP 36.4–36.7; O2SAT 94–100
--- NOTE | ~2022-09-02 | XR_ITS ---
EXAMINATION: XR retrograde pyelo w/stent RT DATE: 09/02/2022 09:01 INDICATION: Right ureteral stone. TECHNIQUE: 5 intraoperative fluoroscopic views of the abdomen and pelvis were obtained. I was not pre sent. Fluoroscopy exposure time was 34 seconds. COMPARISON: CT abdomen and pelvis 06/18/2013 FINDINGS: There is a stone in the distal ureter. Images demonstrate a right-sided retrograde pyelogra m. The final images demonstrate the right internal ureteral stent in expected position. There are bra chytherapy seeds in the prostate. IMPRESSION: 1. Stone in the distal right ureter status post extraction. 2. Right internal ureteral stent in expected position. Reviewed, dictated and finalized at location A. [employer]
--- NOTE | 2022-09-02 06:43 | WPDHPUPDATE1 ---
History and Physical Update Update Date/Time: 09/02/22 06:43 History and Physical has been reviewed, including an updated exam of the patient. There are NO changes in the patient's condition. Risks, benefits, and alternatives have been discussed and questions answered. Patient agrees to proceed with procedure.
[2022-09-02] MEDS: LACTATED RINGERS 1,000 ML 30 ML IV CONT (07:17)
[2022-09-02] MEDS: ceFAZolin 2 GM/D5W 50 ML 2 GM/50 ML BAG IVPB (08:14)
[2022-09-02] MEDS: LIDOCAINE HCL 2% GEL UROJET 10 ML PKG MUCOUS MEM (08:22)
--- NOTE | 2022-09-02 09:13 | W.PM.PROC2 ---
Procedure Note - Detailed Date of Procedure 09/02/22 Pre-op Diagnosis Large right ureteral stone Post-op Diagnosis Same Procedure Performed Cystoscopy, right ureteral stent removal, right laser lithotripsy with stone extraction, right retrograde pyelogram and stent replacement Surgeon Brayan Romo MD Anesthesia General Description of Procedure Patient brought to the operative suite was prepped draped in routine sterile fashion while in dorsal lithotomy position. After the uneventful induction of a general anesthetic a 21 F rigid cystoscope was placed in his bladder. Tip of the indwelling stent is grasped and is brought to the external urethral meatus. A 0.035 in glidewire was advanced beyond it and into the renal pelvis. Distal ureter was dilated with an 8 F 10 F dilator. Ureteroscopy was undertaken with a short tapered semi-rigid ureteral scope. His 13 mm stone is still in the distal right ureter. Using a holmium laser on dusting setting we fractured the stone into multiple miniscule pieces. The larger of the pieces was removed with a stone basket ( 1.9 F disposable stone basket). I did replace the 4.8 F variable length stent with the proximal coil in the renal pelvis and distal coil in the bladder. Positioning was confirmed by retrograde pyelogram that was obtained prior to stent placement. Scopes and wires were removed and he was taken to the recovery room good condition Drains Yes Packing No Pathology Yes Complications No immediate complications Condition Stable
== END 2022-09-02 10:31 | disposition home or self-care (01) ==
PROVIDERS: PCP Physician Assistant Medical; Visit Provider Urology
PROC: (CPT 52352; principal; 2022-09-02 09:00)
DX: N20.1 Calculus of ureter (principal); I10 Essential (primary) hypertension; E78.5 Hyperlipidemia, unspecified; I48.0 Paroxysmal atrial fibrillation; G47.33 Obstructive sleep apnea (adult) (pediatric); J44.9 Chronic obstructive pulmonary disease, unspecified; F41.9 Anxiety disorder, unspecified; I47.1 Supraventricular tachycardia; Z79.01 Long term (current) use of anticoagulants; Z87.891 Personal history of nicotine dependence
CPT/HCPCS: 52356; 74420; 82365; 88300; C1769; C2617; J0690; J2405; J2704; J3010; J7120

== ENCOUNTER 2022-10-13 08:04 | Outpatient (CLI) | payer MEDICARE, SELFPAY ==
--- NOTE | 2022-10-18 08:31 | P.PCNPFT_ITS ---
PFT Procedure Performed PFT Procedure Performed Spirometry with Pre/Post Bronchodilator Plethysmography (Lung Vol) Diffusing Cap (DLCO) Flow Vol Loop PFT Interpretation DOS: 10/13/2022 REQUESTING: Aleksander Woodruff APRN REASON FOR TESTING: Dyspnea PULMONARY FUNCTION TESTS Results are reliable and reproducible. Spirometry: Pre bronchodilator FEV1 2.63 L, 90%, normal. Pre bronchodilator FVC 3.20 L, 81%, normal. FEV1/FVC 82%, normal. After bronchodilator there is a 4% increase in the FEV1 and a 5% increase in the FVC. Ratio is still 82%. Normal values. Lung volumes: Total lung capacity 6.12 L, 86%, normal. Residual volume 2.67 L, 101%, normal. RV/TLC 44%, normal. Airway resistance 2.21 cmH20/L/sec, 170%. Diffusion: DLCO is 20, 83%, normal. DLCO / VA is 3.79, 104%, normal. Flow volume loop: Normal. IMPRESSION: Normal spirometry, lung volumes, diffusion. No change with bronch odilator. Lack of response to bronchodilator should not preclude use if clinically indicated. Dacia Ng MD
--- NOTE | 2022-10-18 08:35 | WPDSIXMINUTE ---
Six Minute Walk Procedure Procedure Performed Pulmonary Stress Test (6 min walk) Six Minute Walk Six Minute Walk: DOS: 10/13/2022 SIX MINUTE WALK This study was conducted per ATS guidelines. Initial saturation was 98% and the pulse was 60. The patient walked for 6 minutes without stopping to rest, no drop in the saturation. Distance walked was 304.8 m/ 1000 ft. Maximum pulse was 99. At the end recovery pulse returned to baseline, 71. Impression: This is a normal 6 minute walk study. No desaturation, no supplemental oxygen required with exertion.
== END 2022-10-13 08:05 | disposition home or self-care (01) ==
PROVIDERS: PCP Physician Assistant Medical; Visit Provider Nurse Practitioner Family
DX: J44.9 Chronic obstructive pulmonary disease, unspecified (principal); R06.09 Other forms of dyspnea
CPT/HCPCS: 94060; 94726; 94729

== ENCOUNTER 2023-03-08 15:57 | Emergency (ER) | payer MEDICARE, SELFPAY ==
--- NOTE | ~2023-03-08 | CT_ITS ---
EXAMINATION: CT abdomen pelvis w con DATE: 03/08/2023 19:59 INDICATION: LLQ pain, recent diverticulitis TECHNIQUE: Computed tomography (CT) of the abdomen and pelvis was performed with 100 mL Omnipaque-350 intravenous contrast. Automated exposure control and iterative reconstruction technique were employe d. The dose-length product was 814.79 mGy-cm. COMPARISON: 06/18/2013. FINDINGS: Lower thorax: Minimal lingular and right middle lobe scar. Coronary artery calcification. Liver: Small simple left lobe cyst. Additional subcentimeter hypodensities, too small to characterize but most likely represent cysts or hemangiomas.. Biliary/Gallbladder: Gallbladder is normal. No bile duct dilation. Pancreas: No mass or duct dilation. Spleen: Small splenule. Subcentimeter hypodensity, too small to characterize but most likely represen ts a cyst or hemangioma.. Adrenals:No mass. Kidneys: Nonobstructing right midpole calcification. Subcentimeter bilateral hypodensities, too small to characterize but most likely represent cysts. Multiple right renal cysts, measuring up to 8.4 cm in the right upper pole. No suspicious mass, obstructing stone, or hydronephrosis. GI tract: Mild distal esophageal and moderate antral wall edema. No small or large bowel dilation. No rmal appendix. Diverticulosis without diverticulitis. Mesentery/Peritoneum: No ascites, mass, or free air. Multiple prominent mesenteric lymph nodes with s urrounding inflammatory change. Retroperitoneum: No mass. Atherosclerotic abdominal aortic and/or arterial calcifications. Pelvis: Prostate seeds. Bladder wall thickening in a partially distended urinary bladder likely due t o outlet obstruction from prostatomegaly. Stable nodular impression in the bladder base, likely relat ed to the enlarged prostate. Soft Tissues: Small fat-containing uncomplicated appearing bilateral inguinal hernias. Prior mesh rep air of the umbilical and left inguinal hernias. Bones: No acute osseous finding. IMPRESSION: Mild esophagitis. Moderate antral gastritis. Mesenteric panniculitis. Reviewed, dictated and finalized at location K.
[2023-03-08 15:58] VITALS: BP 135/61; PULSE 64; RESP 20; TEMP 36.4; O2SAT 100
[2023-03-08 18:10] VITALS: BP 124/67; PULSE 60; RESP 16; TEMP 36.6; O2SAT 100
[2023-03-08 18:35] VITALS: BP 159/84; PULSE 58; RESP 20; TEMP 36.4; O2SAT 98
[2023-03-08 19:07] LABS: Basophils Percent Auto 0.3 % (0.2-1.2); Eosinophils Absolute Auto 0.1 K/mm3 (0-0.3); Eosinophils Percent Auto 1.4 % (0-4.4); Hematocrit 40.8 % (42.0-52.0); Immature Granulocyte Absolute 0.02 K/mm3 (0.00-0.031); Immature Granulocyte Percent A 0.3 % (0-0.5); Lymphocytes Absolute Auto 1.75 K/mm3 (0.9-3.2); Lymphocytes Percent Auto 26.6 % (18.3-44.2); Mean Corpuscular HGB Conc 31.9 g/dl (32-36); Mean Corpuscular Hemoglobin 30.3 pg (26-34); Mean Corpuscular Volume 95.1 fl (80-100); Mean Platelet Volume 9.3 fl (7.4-10.4); Monocytes Absolute Auto 0.9 K/mm3 (0.1-0.6); Monocytes Percent Auto 14.2 % (2.6-8.5); Neutrophils Absolute Auto 3.8 K/mm3 (1.3-6.7); Neutrophils Percent Auto 57.2 % (45.5-73.1); Platelet Count Result 238 k/mm3 (150-375); Red Blood Count 4.29 M/mm3 (4.6-6.20); Red Cell Distribution Width 14.3 % (11.5-14.5); White Blood Count 6.6 K/mm3 (4.5-10.0)
[2023-03-08 19:20] LABS: Alanine Aminotransferase 31 U/L (6-50); Albumin Level 3.6 g/dL (3.5-5.1); Alkaline Phosphatase 51 U/L (38-126); Anion Gap 7 mmol/L (8-16); Aspartate Amino Transferase 45 U/L (17-59); Bilirubin,Total 0.5 mg/dL (0.2-1.3); Blood Urea Nitrogen 9 mg/dL (9-20); Calcium 8.3 mg/dL (8.4-10.2); Carbon Dioxide 23 mmol/L (22-30); Chloride 103 mmol/L (98-107); Estimated CRCL calculation 46 ml/min; Estimated Glomerular Filt Rate 58; Glucose 116 mg/dL (65-110); Lipase 46 U/L (23-300); Sodium 133 mmol/L (137-145)
[2023-03-08 19:27] LABS: Appearance Urine Clear (Clear); Bacteria Urine None Seen /hpf; Bilirubin Urine Negative (Negative); Blood Urine Negative (Negative); Color Urine Dark Yellow (Yellow); Glucose Urine UA Negative (Negative); Hyaline Casts Urine Present /lpf; Ketones Urine Trace mg/dL (Negative); Leukocyte Esterase Ur Trace LEU/UL (Negative); Nitrate Urine Negative (Negative); Protein Urine Trace mg/dL (Negative); RBC Urine 0-2 /hpf (0-2); Specific Grav Ur 1.019 (1.001-1.035); Squamous Epithelial Cell Urine None seen /hpf (Few); Urobilinogen Urine 0.2 mg/dL (<2.0); WBC Urine 0-5 /hpf
[2023-03-08 19:28] LABS: Add Urine Microscopic? YES
[2023-03-08] MEDS: SODIUM CHLORIDE 0.9% IV 1,000 ML 999 ML IV CONT (21:24)
[2023-03-08] MEDS: FAMOTIDINE 20 MG/2 ML VIAL IV PUSH (21:24)
[2023-03-08] MEDS: ONDANSETRON INJ 4 MG/2 ML VIAL IV PUSH (21:24)
[2023-03-08] MEDS: KETOROLAC 30 MG/ML VIAL (*BKC) IV PUSH (21:24)
[2023-03-08 21:36] VITALS: BP 149/74; PULSE 52; RESP 16; O2SAT 99
--- NOTE | 2023-03-08 21:48 | ED.ABDPAIN ---
HPI - Abdominal Pain General Chief Complaint: Abdominal Pain Stated Complaint: ab pain Time Seen by Provider: 03/08/23 18:53 History of Present Illness HPI narrative: Patient is a 77-year-old male presenting with abdominal pain. Patient states that he has been having abdominal pain with bloating and nausea for the last several weeks. He saw his PCP last week who started him on ciprofloxacin and Flagyl for diverticulitis. States that the symptoms temporarily improved but then he again had left-sided abdominal pain today so he was advised to come in for further evaluation. States that he has been able to tolerate some p.o. intake but he continues to feel bloated and intermittently nauseated. States that he had a normal bowel movement this morning. No fevers or chills, chest pain, shortness of breath, cough, dysuria, flank pain, hematuria, leg swelling. Related Data Home Medications Medication Instructions Recorded Confirmed rivaroxaban 20 mg tablet (Xarelto) 20 mg PO DAILY 04/06/22 01/27/23 [id number] tablet PO 08/31/22 01/27/23 750 mg-100 mg-125 mg-1.65 mg tablet (Glucosamine Chondroit Complx Advan) omega-3 fatty acids 500 mg capsule 500 mg PO DAILY 08/31/22 01/27/23 metoprolol succinate 25 mg 25 mg PO DAILY 12/21/22 01/27/23 tablet,extended release 24 hr Allergies Allergy/AdvReac Type Severity Reaction Status Date / Time doxycycline AdvReac Intermediate Nausea Verified 03/10/23 09:35 Review of Systems Review of Systems: All systems reviewed & are unremarkable except as noted in HPI and below PMFSH Past Medical History Medical History (Updated 03/10/23 @ 09:57 by Dmitry Billings MD) Abdominal pain Anxiety COPD (chronic obstructive pulmonary disease) Diarrhea Diverticulitis Dyslipidemia Encounter for screening for malignant neoplasm of prostate Gastritis Hearing loss History of brachytherapy History of stress test Hypertension Inguinal hernia Kidney calculi Lumbar pain LAM (obstructive sleep apnea) PAF (paroxysmal atrial fibrillation) PAT (paroxysmal atrial tachycardia) Shortness of breath Tachycardia Ventral hernia Surgical History Surgical History H/O lithotripsy History of cataract removal with insertion of prosthetic lens History of knee replacement right knee 2005 Family History Family History Mother Family history of lymphoma Father Family history of malignant neoplasm Social History Social History Smoking packs per day: 0.75 Smoking cigarettes per day: 15.0 Years smoked: 20 Smoking pack-years: 15.00 Smoking status: Former smoker Tobacco type: cigarettes Smoking end date: 06/27/89 Alcohol intake: current Alcohol use details: Occasionally Substance use: never Living arrangements: with family Occupation/Education: occupation Gender identity (if verbalized by the patient): Male Spiritual care concerns: No Exam Narrative: GENERAL: Well-appearing and in no acute distress. Pleasant and cooperative HEAD: Normocephalic, atraumatic. EYES: PERRLA and EOMI. ENT: Nares clear, no rhinorrhea or epistaxis. Mucous membranes moist. NECK: Supple. CHEST: Clear to auscultation. No respiratory distress. HEART: Regular rate and rhythm ABDOMEN: Soft, mild left upper and left lower quadrant tenderness without guarding or rebound EXTREMITIES: Normal range of motion. No edema. SKIN: Warm, dry, no rash. NEURO: No focal deficits. Alert and oriented x3. PSYCH: Normal mood and affect. Course Vital Signs Vital signs: Vital Signs Temperature 97.5 F L 03/08/23 15:58 Pulse Rate 64 03/08/23 15:58 Respiratory Rate 20 03/08/23 15:58 Blood Pressure 135/61 03/08/23 15:58 Pulse Oximetry 100 03/08/23 15:58 Oxygen Delivery Room Air 03/08/23 15:58 Temp
[2023-03-08 23:05] VITALS: BP 130/75; PULSE 56; RESP 17; O2SAT 98
== END 2023-03-08 23:07 | disposition home or self-care (01) ==
PROVIDERS: Emergency Provider Emergency Medicine; PCP Family Medicine
DX: K20.90 Esophagitis, unspecified without bleeding (principal); K29.70 Gastritis, unspecified, without bleeding; I48.0 Paroxysmal atrial fibrillation; J44.9 Chronic obstructive pulmonary disease, unspecified; E78.5 Hyperlipidemia, unspecified; I10 Essential (primary) hypertension; G47.33 Obstructive sleep apnea (adult) (pediatric); Z98.49 Cataract extraction status, unspecified eye; Z96.1 Presence of intraocular lens; Z96.651 Presence of right artificial knee joint; Z87.442 Personal history of urinary calculi; Z87.891 Personal history of nicotine dependence; Z79.01 Long term (current) use of anticoagulants; K65.4 Sclerosing mesenteritis
CPT/HCPCS: 36415; 74177; 80053; 81001; 83690; 85025; 96361; 96374; 96375; 99284; J1885; J2405; J7030; Q9967

== ENCOUNTER 2023-03-23 12:53 | Inpatient (IN) | payer MEDICARE, SELFPAY ==
[2023-03-23] VITALS (11 sets, daily range): BP systolic 108–143; BP diastolic 55–71; PULSE 59–69; RESP 12–21; TEMP 36.3–36.9; O2SAT 94–100
--- NOTE | 2023-03-23 14:18 | ED.ABDPAIN ---
HPI - Abdominal Pain General Chief Complaint: Abdominal Pain Stated Complaint: abdominal pain Time Seen by Provider: 03/23/23 14:03 History of Present Illness HPI narrative: 77-year-old male history of COPD, anxiety, dyslipidemia, hypertension, status post ablation due to atrial fibrillation presents to the emergency room for ongoing abdominal discomfort, nausea and intermittent loose stools. Patient was seen here in the emergency room 3 weeks ago for similar symptoms and was diagnosed with gastritis. Patient was started on Protonix and Pepcid which she said was helping his symptoms. Patient did follow-up with his GI doctor 1 week ago and was told that an EGD would be scheduled in the upcoming weeks. Patient states that he has been experiencing very low caloric intake due to his nausea and abdominal bloating. States that there was initial weight loss of 20 to 30 pounds since December, continues to lose weight. Patient denies any diarrhea or constipation. Denies any blood in his stools. Denies blood in his emesis. Admits to negative Cologuard and colonoscopy within the last few years. Related Data Home Medications Medication Instructions Recorded Confirmed rivaroxaban 20 mg tablet (Xarelto) 20 mg PO DAILY 04/06/22 03/17/23 [id number] tablet PO 08/31/22 03/17/23 750 mg-100 mg-125 mg-1.65 mg tablet (Glucosamine Chondroit Complx Advan) omega-3 fatty acids 500 mg capsule 500 mg PO DAILY 08/31/22 03/17/23 metoprolol succinate 25 mg 25 mg PO DAILY 12/21/22 03/17/23 tablet,extended release 24 hr Allergies Allergy/AdvReac Type Severity Reaction Status Date / Time doxycycline AdvReac Intermediate Nausea Verified 03/17/23 12:51 Review of Systems Review of Systems: CONSTITUTIONAL: Denies fever, chills, or sweats. EYES: Denies visual changes, redness, or discharge. ENT: Denies rhinorrhea, congestion, sore throat, or otalgia. CARDIOVASCULAR: Denies chest pain, palpitations, or edema. RESPIRATORY: Denies cough or dyspnea. GASTROINTESTINAL: Reports abdominal discomfort, nausea GENITOURINARY: Denies dysuria or hematuria. SKIN: Denies rash or itching. MUSCULOSKELETAL: Denies back pain, joint pain, or myalgia. NEUROLOGIC: Denies headache, numbness, dizziness, or weakness. PSYCHIATRIC: Denies anxiety or depression. [facility] Past Medical History Medical History Abdominal pain Anxiety COPD (chronic obstructive pulmonary disease) Diarrhea Diverticulitis Dyslipidemia Encounter for screening for malignant neoplasm of prostate Gastritis Hearing loss History of brachytherapy History of stress test Hospital discharge follow-up Hypertension Inguinal hernia Kidney calculi Lumbar pain LAM (obstructive sleep apnea) PAF (paroxysmal atrial fibrillation) PAT (paroxysmal atrial tachycardia) Shortness of breath Tachycardia Ventral hernia Surgical History Surgical History H/O lithotripsy History of cataract removal with insertion of prosthetic lens History of knee replacement right knee 2005 Family History Family History Mother Family history of lymphoma Father Family history of malignant neoplasm Social History Social History Smoking packs per day: 0.75 Smoking cigarettes per day: 15.0 Years smoked: 20 Smoking pack-years: 15.00 Smoking status: Former smoker Tobacco type: cigarettes Smoking end date: 06/27/89 Alcohol intake: current Alcohol use details: Occasionally Substance use: never Living arrangements: with family Occupation/Education: occupation Gender identity (if verbalized by the patient): Male Spiritual care concerns: No Exam Narrative: GENERAL: Well-appearing, well-nourished, no physical limitations, and in no acute distress. HEAD
[2023-03-23 14:24] LABS: Basophils Percent Auto 0.3 % (0.2-1.2); Eosinophils Absolute Auto 0.1 K/mm3 (0-0.3); Eosinophils Percent Auto 1.6 % (0-4.4); Hematocrit 42.3 % (42.0-52.0); Immature Granulocyte Absolute 0.04 K/mm3 (0.00-0.031); Immature Granulocyte Percent A 0.4 % (0-0.5); Lymphocytes Absolute Auto 2.09 K/mm3 (0.9-3.2); Lymphocytes Percent Auto 23.2 % (18.3-44.2); Mean Corpuscular HGB Conc 33.1 g/dl (32-36); Mean Corpuscular Hemoglobin 30.6 pg (26-34); Mean Corpuscular Volume 92.4 fl (80-100); Mean Platelet Volume 9.4 fl (7.4-10.4); Monocytes Percent Auto 10.8 % (2.6-8.5); Neutrophils Absolute Auto 5.7 K/mm3 (1.3-6.7); Neutrophils Percent Auto 63.7 % (45.5-73.1); Platelet Count Result 265 k/mm3 (150-375); Red Blood Count 4.58 M/mm3 (4.6-6.20); Red Cell Distribution Width 14.2 % (11.5-14.5)
[2023-03-23 14:34] LABS: Lactic Acid Reflex 1.5 mmol/L (0.7-2.0)
[2023-03-23 14:36] LABS: Alanine Aminotransferase 32 U/L (6-50); Albumin Level 3.5 g/dL (3.5-5.1); Alkaline Phosphatase 61 U/L (38-126); Anion Gap 7 mmol/L (8-16); Aspartate Amino Transferase 40 U/L (17-59); Bilirubin,Total 0.7 mg/dL (0.2-1.3); Blood Urea Nitrogen 11 mg/dL (9-20); Calcium 8.6 mg/dL (8.4-10.2); Carbon Dioxide 23 mmol/L (22-30); Chloride 104 mmol/L (98-107); Estimated CRCL calculation 58 ml/min; Estimated Glomerular Filt Rate > 60; Glucose 110 mg/dL (65-110); INR 1.2; Lipase 76 U/L (23-300); Prothrombin Time 15.4 Seconds (11.1-14.7); Sodium 134 mmol/L (137-145)
[2023-03-23 14:37] LABS: Partial Thromboplastin Time 32.5 SECONDS (22.3-36.8)
[2023-03-23] MEDS: ONDANSETRON INJ 4 MG/2 ML VIAL IV PUSH (14:56)
[2023-03-23 14:59] LABS: Appearance Urine Cloudy (Clear); Bacteria Urine None Seen /hpf; Bilirubin Urine Negative (Negative); Blood Urine Negative (Negative); Color Urine Yellow (Yellow); Glucose Urine UA Negative (Negative); Ketones Urine Trace mg/dL (Negative); Leukocyte Esterase Ur Negative LEU/UL (Negative); Nitrate Urine Negative (Negative); Non Pathogenic Casts 0-2; Protein Urine Trace mg/dL (Negative); RBC Urine 0-2 /hpf (0-2); Specific Grav Ur 1.019 (1.001-1.035); Squamous Epithelial Cell Urine None seen /hpf (Few); Urobilinogen Urine 0.2 mg/dL (<2.0); WBC Urine 0-5 /hpf; pH Urine 5.5 (5.0-9.0)
[2023-03-23 15:04] LABS: Add Urine Microscopic? YES
--- NOTE | 2023-03-23 16:52 | ADMGEN ---
This patient, Garrett Gifford, was admitted to 3 [facility] Surg Room 326-01. Patient/family oriented to hospital policies and general routines including ID bracelet, bed and alarms, visiting hours, pain management, procedures, bathroom and other care routines, personal items, smoking policy, room service/diet, and visiting hours. Information on how to activate the Rapid Response Team has been discussed. Patient/Family are encouraged to report perceived risks to care and to ask questions if they do not understand what they are told or what they should do.
--- NOTE | 2023-03-23 17:41 | PM.IMHP ---
H&P: HPI History of Present Illness Date/Time: 03/23/23 18:00 Chief Complaint: Nausea and vomiting. Narrative: This is a very pleasant 77-year-old male with history of kidney stones, paroxysmal atrial fibrillation and flutter status post cardiac ablation, prediabetes, hypertension, hyperlipidemia, chronic obstructive pulmonary disease, and sleep apnea who presented to the emergency department via private vehicle from home for evaluation of nausea and vomiting. The patient provides the following history. He reports ongoing GI issues since mid December. Initially he had issues with constipation and started taking MiraLax after which he developed diarrhea and abdominal cramping. Since that time he has continued to have issues with GI discomfort. Symptoms include poor appetite, nausea, early satiety, bloating, and today he had several episodes of emesis which is new. He has lost 20 to 30 lb since December. He has not noticed any blood in his stool. He denies dysphagia. No history of abnormal endoscopy or GI malignancy. He was previously evaluated by his primary care provider and was prescribed ciprofloxacin and metronidazole for possible diverticulitis. He was seen in the ED on 03/08/[address] of the abdomen pelvis showed mild esophagitis, moderate antral gastritis, and mesenteric panniculitis. He was instructed to start taking pantoprazole 40 mg daily which he has done without benefit. Labs today were pretty unremarkable with the only outlier is being a sodium of 134 and a total protein of 6.0. Urine does show trace ketones. He is being admitted in this setting for GI consultation. Review of Systems Review of Systems: Twelve systems were reviewed and are negative except for as per HPI. [facility] Past Medical History Medical History (Updated 03/23/23 @ 20:23 by Amada Dickerson PA-C) Anxiety Chronic anticoagulation Chronic obstructive pulmonary disease Diverticulitis Dyslipidemia Gastritis History of brachytherapy Hypertension Kidney calculi Obstructive sleep apnea Paroxysmal atrial fibrillation Prostate cancer Status post brachytherapy. Ventral hernia Surgical History Surgical History (Updated 03/23/23 @ 20:21 by Amada Dickerson PA-C) History of arthroscopy of right knee (2005) History of cardiac radiofrequency ablation History of cataract removal with insertion of prosthetic lens History of inguinal hernia repair History of lithotripsy History of umbilical hernia repair Family History Family History Mother Family history of lymphoma Father Family history of malignant neoplasm Social History Social History (Updated 03/23/23 @ 20:21 by Amada Dickerson PA-C) Social History: Surrogate medical decision maker: Britni England, spouse. Code status: Full code. Smoking packs per day: 0.75 Smoking cigarettes per day: 15.0 Years smoked: 20 Smoking pack-years: 15.00 Smoking status: Former smoker Alcohol intake: never Substance use: never Substance use type: does not use Lack of Transportation: No Lack of Food: Never True Current Housing: I Have Housing Concerned About Future Housing: No Difficulty Paying Gas/Electric Bills: No Difficulty Paying for Meds: No Currently Unemployed: No Education: Master's Degree or Higher Difficulty w/ Childcare or Family Care: No Living arrangements: with family Occupation/Education: occupation Spiritual care concerns: No Meds Home Medications and Allergies Home Medications Medication Instructions Recorded Confirmed Type rivaroxaban 20 mg tablet (Xarelto) 20 mg PO DAILY 04/06/22 03/23/23 History omega-3 fatty acids 500 mg capsule 500 mg PO DAILY 08/31/22 03/23/23 History budesonide 160 mcg-glycopyr 9 2 inh inhalation BID #5.9 grams 09/28/22 03/23/23 Rx mcg-formot 4.8 mcg/actuation HFA inhaler (Breztri Aerosphere) triamcinolone acetonide 0.1 % 1 applic topical BI
[2023-03-23] MEDS: PRAVASTATIN SODIUM 20 MG TABLET BY MOUTH (21:32)
[2023-03-23] MEDS: hydrALAZINE HCL 25 MG TABLET PO (21:32)
[2023-03-23] MEDS: LORazepam (*CRX) 1 MG TABLET PO (21:33)
[2023-03-23] MEDS: PANTOPRAZOLE SODIUM IV 40 MG VIAL IV PUSH (21:33)
[2023-03-24 06:00] VITALS: BP 120/65; PULSE 58; RESP 18; TEMP 36.9; O2SAT 96
[2023-03-24 06:28] LABS: Hematocrit 36.9 % (42.0-52.0); Hemoglobin 12.2 g/dL (14.0-18.0); Mean Corpuscular HGB Conc 33.1 g/dl (32-36); Mean Corpuscular Hemoglobin 30.4 pg (26-34); Mean Platelet Volume 9.1 fl (7.4-10.4); Platelet Count Result 224 k/mm3 (150-375); Red Blood Count 4.01 M/mm3 (4.6-6.20); Red Cell Distribution Width 13.9 % (11.5-14.5)
[2023-03-24 06:56] LABS: Anion Gap 2 mmol/L (8-16); Blood Urea Nitrogen 9 mg/dL (9-20); Calcium 8.5 mg/dL (8.4-10.2); Carbon Dioxide 27 mmol/L (22-30); Chloride 103 mmol/L (98-107); Estimated CRCL calculation 53 ml/min; Estimated Glomerular Filt Rate > 60; Glucose 91 mg/dL (65-110); Magnesium 1.9 mg/dL (1.6-2.3); Potassium 4.3 mmol/L (3.4-5.0); Sodium 132 mmol/L (137-145)
[2023-03-24 08:11] VITALS: PULSE 64; O2SAT 95
[2023-03-24] MEDS: FLUTICASONE/UMECLIDIN/VILANTER 100-62.5-25 MCG ELLIPTA 1 PUFF INHALATION (08:11)
[2023-03-24] MEDS: hydrALAZINE HCL 25 MG TABLET PO ×2 (08:42→17:25)
[2023-03-24 08:43] VITALS: PULSE 40
[2023-03-24] MEDS: PANTOPRAZOLE SODIUM IV 40 MG VIAL IV PUSH ×2 (08:44→21:19)
[2023-03-24] MEDS: lisinopriL 20 MG TABLET PO (08:44)
[2023-03-24] MEDS: OMEGA 3 POLYUNSAT FATTY ACIDS 1 GM CAP PO (08:47)
[2023-03-24 13:12] VITALS: BMI 28.5
[2023-03-24 13:49] VITALS: BP 140/82; PULSE 67; RESP 18; TEMP 36.8; O2SAT 98
--- NOTE | 2023-03-24 14:53 | PM.IMPN ---
Progress Note: A&P Assessment and Plan (1) Weight loss: Code(s): R63.4 - Abnormal weight loss Status: Acute Assessment and Plan: The patient presented to the emergency department for evaluation of nausea and vomiting as detailed in HPI. He has had ongoing issue since mid December with symptoms to include poor appetite, nausea, bloating, early satiety, and a 20 -30 lb unintentional weight loss. Labs show that he was mildly dehydrated and he will receive IV fluids overnight. He was on omeprazole on admission. He was continued on the Protonix here. Consider esophageal or gastric neoplasm. Consider also fungal esophagitis. Consider stricture from reflux. GI was consulted possible EGD. CT scan of the abdomen and pelvis on 03/08/2023 shows mild esophagitis, moderate antral gastritis and mesenteric panniculitis. Consider repeat imaging if EGD is normal. (2) Early satiety: Code(s): R68.81 - Early satiety Status: Acute Assessment and Plan: Patient with early satiety. Contributing to the weight loss. As above. (3) Mild dehydration: Code(s): E86.0 - Dehydration Status: Acute Assessment and Plan: As above. (4) Nausea & vomiting: Code(s): R11.2 - Nausea with vomiting, unspecified Status: Acute Assessment and Plan: Resolved. Continue to monitor. (5) Hypertension: Code(s): I10 - Essential (primary) hypertension Status: Acute Assessment and Plan: Patient's blood pressure was reviewed on 03/24 Blood pressure remains well controlled. Will continue to monitor (6) Chronic obstructive pulmonary disease: Code(s): J44.9 - Chronic obstructive pulmonary disease, unspecified Status: Acute Assessment and Plan: Stable. No wheezing. Continue Trelegy (7) PAF (paroxysmal atrial fibrillation): Code(s): I48.0 - Paroxysmal atrial fibrillation Status: Acute Assessment and Plan: Patient with known paroxysmal AFib. He had cardiac ablation about 6 months ago. His rhythm is irregular. No EKG performed here. Xarelto on hold. Continue metoprolol. Plan DVT prophylaxis -SCDs Code status -full Subjective Date/time seen: 03/24/23 14:53 Interval history: 77yo male with COPD, pAFib on Xarelto, LAM, prostate cancer and HTN here for weakness and weight loss. Patient states that he developed symptoms beginning about 2 months ago with loss of appetite and early satiety. Also with nausea and vomiting on occasion. No diarrhea. He has lost about 30 lb. He quit smoking in 1989. No melena or hematochezia. No odynophagia. He feels weak. He states 2 weeks ago he had a CT scan which showed esophagitis and gastritis. Exam Narrative: AF 98.3 140/82 67 18 98% ra Gen - NARD HEENT -no thrush. Moist mucous membranes Chest - CTA bilaterally, nml RR CV - irregularly irregular. 2/6 murmur apex Abd - Soft, NT/ND, Positive BS Ext - No pedal edema Psych - Nml mood and affect Skin - Warm and dry Objective Data Vital Signs Vital Signs: Vital Signs - 24 hr 03/23/23 15:00 03/23/23 15:01 03/23/23 15:02 Temperature Pulse Rate 63 62 63 Respiratory Rate 14 12 14 Blood Pressure 109/64 108/61 Pulse Oximetry 98 99 100 Oxygen Delivery 03/23/23 15:31 03/23/23 16:01 03/23/23 16:16 Temperature Pulse Rate 65 65 62 Respiratory Rate 17 21 H 19 Blood Pressure 110/66 122/57 L 110/64 Pulse Oximetry 94 99 99 Oxygen Delivery 03/23/23 16:31 03/23/23 17:06 03/23/23 21:20 Temperature 97.3 F L 98.5 F Pulse Rate 68 62 59 L Respiratory Rate 19 18 20 Blood Pressure 108/70 138/62 143/55 H Pulse Oximetry 100 100 96 Oxygen Delivery 03/23/23 20:00 03/24/23 06:00 03/24/23 08:11 Temperature 98.5 F Pulse Rate 58 L 64 Respiratory Rate 18 Blood Pressure 120/65 Pulse Oximetry 96 95 Oxygen Delivery Room Air Room Air 03/24/23 08:43 03/24/23 08:40 03/24/23 13:
--- NOTE | 2023-03-24 15:49 | WPDGICN ---
Assessment and Plan Assessment and plan (1) Early satiety: Code(s): R68.81 - Early satiety Status: Acute Assessment and Plan: ongoing symptoms despite medical treatment and weight loss CT scan reviewed egd tomorrow (2) Weight loss: Code(s): R63.4 - Abnormal weight loss Status: Acute Assessment and Plan: egd in am (3) Nausea & vomiting: Code(s): R11.2 - Nausea with vomiting, unspecified Status: Acute (4) Chronic obstructive pulmonary disease: Code(s): J44.9 - Chronic obstructive pulmonary disease, unspecified Status: Acute (5) Abnormal CT scan, gastrointestinal tract: Code(s): R93.3 - Abnormal findings on diagnostic imaging of other parts of digestive tract Status: Acute Assessment and Plan: esophagitis and possible gastritis iv protonix GI Consult Note Consult date/time: 03/24/23 15:49 Reason for consult: weight loss, early satiety HPI: Garrett Gifford is a 77 year old male with history of kidney stones, paroxysmal atrial fibrillation and flutter status post cardiac ablation, prediabetes, hypertension, hyperlipidemia, chronic obstructive pulmonary disease, and sleep apnea who presented to the emergency department via private vehicle from home for evaluation of nausea and vomiting. He reports ongoing GI issues since mid December, actually was in the office recently. It started in mid December with mid to upper left-sided abdominal gurgling.?Also decrease appetite and weight loss. Ct scan showed?Mild esophagitis. Moderate antral gastritis. Mesenteric panniculitis.?He does not feel like eating, denies dysphagia, also associated postprandial belching and bloating and increase acid reflux symptoms. He has a history of GERD, he was on omeprazole 20 mg daily but discharged from ER with Protonix 40 mg daily. Reports EGD approximately [address] Brand with questionable barretts, but esophageal bx negative for barretts.? his last colonoscopy was approximately 10 years ago.? He had a recent Cologuard which was negative. He is not feeling any better and admitted here. Review of Systems Constitutional: Constitutional: Reports fatigue Comments: weight loss Eyes: Eyes: Denies blurry vision ENT: Reports Normal hearing present Cardiovascular: Cardiovascular: Denies chest pain Respiratory: Respiratory: Denies cough Gastrointestinal: Gastrointestinal: Reports heartburn and Reports nausea Genitourinary: Genitourinary: Denies dysuria Musculoskeletal: Musculoskeletal: Denies arthralgias Integumentary/Breasts: Skin/Breast: Denies rash Neurologic: Denies Abnormal speech present Psychiatric: Psychiatric: Denies behavioral changes [facility] Past Medical History Medical History (Updated 03/24/23 @ 15:55 by Adrian Brooke MD) Abnormal CT scan, gastrointestinal tract Anxiety Chronic anticoagulation Chronic obstructive pulmonary disease Diverticulitis Dyslipidemia Gastritis History of brachytherapy Hypertension Kidney calculi Obstructive sleep apnea Paroxysmal atrial fibrillation Prostate cancer Status post brachytherapy. Ventral hernia Surgical History Surgical History (Updated 03/23/23 @ 20:21 by Amada Dickerson PA-C) History of arthroscopy of right knee (2005) History of cardiac radiofrequency ablation History of cataract removal with insertion of prosthetic lens History of inguinal hernia repair History of lithotripsy History of umbilical hernia repair Family History Family History Mother Family history of lymphoma Father Family history of malignant neoplasm Social History Social History (Updated 03/23/23 @ 20:21 by Amada Dickerson PA-C) Social History: Surrogate medical decision maker: Britni England, spouse. Code status: Full code. Smoking packs per day: 0.75 Smoking cigarettes per day: 15.0 Years smoked: 20 Smoking pack-years: 15.
[2023-03-24] MEDS: PRAVASTATIN SODIUM 20 MG TABLET BY MOUTH (21:19)
[2023-03-24] MEDS: LORazepam (*CRX) 1 MG TABLET PO (21:19)
[2023-03-24 21:51] VITALS: BP 112/79; PULSE 64; RESP 18; TEMP 35.8; O2SAT 98
[2023-03-25] VITALS (9 sets, daily range): BP systolic 103–160; BP diastolic 50–90; PULSE 41–81; RESP 14–18; TEMP 35.9–36.7; O2SAT 93–98
--- NOTE | 2023-03-25 04:11 | PC.NURSE ---
pt called out at around 0300 stating that he felt really dizzy while walking to [place], but feels better now that he is sitting down. Vitals signs obtained. Pt reminded that he got a new medication, ativan, before bed and dizziness is one of the side effects. call light in reach and pt states he will call out for help the next time he gets up.
[2023-03-25] MEDS: FLUTICASONE/UMECLIDIN/VILANTER 100-62.5-25 MCG ELLIPTA 1 PUFF INHALATION (07:34)
[2023-03-25] MEDS: PANTOPRAZOLE SODIUM IV 40 MG VIAL IV PUSH (08:56)
[2023-03-25] MEDS: OMEGA 3 POLYUNSAT FATTY ACIDS 1 GM CAP PO (08:56)
[2023-03-25] MEDS: hydrALAZINE HCL 25 MG TABLET PO (08:56)
[2023-03-25] MEDS: lisinopriL 20 MG TABLET PO (08:56)
[2023-03-25] MEDS: TRIAMCINOLONE ACET 0.1% CREAM 15 GM TUBE 1 APPLIC TOPICAL (08:57)
--- NOTE | 2023-03-25 09:24 | PC.NURSE ---
To GI Lab per [WHEELCHAIR ], IV [saline locked ]. Report given to [Christianne ].
[2023-03-25] MEDS: LACTATED RINGERS 1,000 ML 150 ML IV CONT (09:54)
--- NOTE | 2023-03-25 10:21 | WPDANESEPPF ---
Anes - Initial Pre Proc Eval Procedure: Operation Date: 03/25/23 13:30 Proposed Procedures p Esophagogastroduodenoscopy - Adrian Brooke MD Date/Time: 03/25/23 10:21 Surgeon: Danelle Alvarez MD Pre Op Diagnosis: abdominal pain Patient Data Age: 77 Gender: M Height: 1.75 m Weight: 86.4 kg Last Vital Signs Temp 97.6 F 03/25/23 09:53 Pulse 72 03/25/23 09:53 Resp 18 03/25/23 09:53 BP 146/50 H 03/25/23 09:53 Pulse Ox 97 03/25/23 09:53 O2 Del Method Room Air 03/25/23 09:53 FiO2 21 03/25/23 07:34 Allergies Allergy/AdvReac Type Severity Reaction Status Date / Time doxycycline AdvReac Intermediate Nausea Verified 03/23/23 16:54 Home Medications Medication Instructions Recorded Confirmed Type rivaroxaban 20 mg tablet (Xarelto) 20 mg PO DAILY 04/06/22 03/23/23 History omega-3 fatty acids 500 mg capsule 500 mg PO DAILY 08/31/22 03/23/23 History budesonide 160 mcg-glycopyr 9 2 inh inhalation BID #5.9 grams 09/28/22 03/23/23 Rx mcg-formot 4.8 mcg/actuation HFA inhaler (Breztri Aerosphere) triamcinolone acetonide 0.1 % 1 applic topical BID #80 grams 11/26/22 03/23/23 Rx topical cream benazepril 20 mg tablet 20 mg PO DAILY #90 tabs 11/29/22 03/23/23 Rx metoprolol succinate 25 mg 25 mg PO DAILY 12/21/22 03/23/23 History tablet,extended release 24 hr pravastatin 40 mg tablet See Rx Instructions .Route 02/08/23 03/23/23 Rx .COMPLEX #90 tabs hydralazine 50 mg tablet 50 mg PO BID 03/23/23 03/23/23 History lorazepam 1 mg tablet 1 mg PO HS 03/23/23 03/23/23 History omeprazole 20 mg capsule,delayed 20 mg PO DAILY 03/23/23 03/23/23 History release Patient hx anesthesia problems: none Family hx anesthesia problems: none Results Review: All pre-operative results and documents have been reviewed as part of the pre-operative evaluation. [facility] Past Medical History Medical History (Updated 03/24/23 @ 15:55 by Adrian Brooke MD) Abnormal CT scan, gastrointestinal tract Anxiety Chronic anticoagulation Chronic obstructive pulmonary disease Diverticulitis Dyslipidemia Gastritis History of brachytherapy Hypertension Kidney calculi Obstructive sleep apnea Paroxysmal atrial fibrillation Prostate cancer Status post brachytherapy. Ventral hernia Surgical History Surgical History (Updated 03/23/23 @ 20:21 by Amada Dickerson PA-C) History of arthroscopy of right knee (2005) History of cardiac radiofrequency ablation History of cataract removal with insertion of prosthetic lens History of inguinal hernia repair History of lithotripsy History of umbilical hernia repair Family History Family History Mother Family history of lymphoma Father Family history of malignant neoplasm Social History Social History (Updated 03/23/23 @ 20:21 by Amada Dickerson PA-C) Social History: Surrogate medical decision maker: Britni England, spouse. Code status: Full code. Smoking packs per day: 0.75 Smoking cigarettes per day: 15.0 Years smoked: 20 Smoking pack-years: 15.00 Smoking status: Former smoker Alcohol intake: never Substance use: never Substance use type: does not use Lack of Transportation: No Lack of Food: Never True Current Housing: I Have Housing Concerned About Future Housing: No Difficulty Paying Gas/Electric Bills: No Difficulty Paying for Meds: No Currently Unemployed: No Education: Master's Degree or Higher Difficulty w/ Childcare or Family Care: No Living arrangements: with family Occupation/Education: occupation Spiritual care concerns: No Anes - Eval Final PreProcedure Day of Procedure 03/25/23 10:21 Patient weight: normal Heart: regular rate and rhythm Lungs: clear to auscultation Airway: Mallampati scale class II Neurological: alert and oriented Last oral intake: >/= 8 hours ASA classification: III Emergent: no A
--- NOTE | 2023-03-25 11:33 | PC.NURSE ---
Returned from GI Lab. Report received from [ ].
--- NOTE | 2023-03-25 12:39 | P.CDI_ITS ---
CDI Query Clarification Request BMI 28.5 Nutritional diagnostic Statement Moderate protein calorie malnutrition related to reduced appetite and intake as evidenced by pt. report and significant weight loss of -8% x 3 months. Please refer to the comprehensive nutrition assessment for further information. Please clarify severity of protein calorie malnutrition if known: * Mild * Moderate * Severe * Other/Unspecified
--- NOTE | 2023-03-25 14:14 | PM.DS ---
DS: Admitting Diagnosis Discharge Date 03/25/23 Admitting Diagnosis Weight loss DS: Discharge Diagnosis Discharge Diagnosis (1) Weight loss: Code(s): R63.4 - Abnormal weight loss Status: Acute (2) Early satiety: Code(s): R68.81 - Early satiety Status: Acute (3) Mild dehydration: Code(s): E86.0 - Dehydration Status: Acute (4) Nausea & vomiting: Code(s): R11.2 - Nausea with vomiting, unspecified Status: Acute (5) Hypertension: Code(s): I10 - Essential (primary) hypertension Status: Acute (6) Chronic obstructive pulmonary disease: Code(s): J44.9 - Chronic obstructive pulmonary disease, unspecified Status: Acute (7) PAF (paroxysmal atrial fibrillation): Code(s): I48.0 - Paroxysmal atrial fibrillation Status: Acute (8) Moderate protein-calorie malnutrition: Code(s): E44.0 - Moderate protein-calorie malnutrition Status: Acute DS: Summary Hospital Course Reason for hospitalization: 77yo male with COPD, pAFib on Xarelto, LAM, prostate cancer and HTN here for weakness and weight loss. Please see H&P for details. Hospital Course: The patient presented to the emergency department for evaluation of nausea and vomiting as detailed in HPI. He has had ongoing issue since mid December with symptoms to include poor appetite, nausea, bloating, early satiety, and a 20 -30 lb unintentional weight loss. Labs show that he was mildly dehydrated and he was given IV fluids.? He was on omeprazole on admission.? He was continued on the Protonix here.? CT scan of the abdomen and pelvis on 03/08/2023 shows mild esophagitis, moderate antral gastritis and mesenteric panniculitis.? GI was consulted and patient underwent EGD.? EGD was completely normal. Biopsies were taken. He was started on diet and advanced. He tolerated this well. Plan for discharge home with further workup by GI as an outpatient. Status at Discharge Cognitive/behavioral status at discharge: stable Time Spent with Patient Time attestation: Total time spent providing and/or coordinating discharge services: 35 minutes Time spent: Greater than 30 minutes Exam Narrative: AF 97.6 108/68 65 18 95% ra Gen - NARD Chest - CTA bilaterally, nml RR CV - irregularly irregular Abd - Soft, NT/ND, Positive BS Ext - No pedal edema Psych - Nml mood and affect Skin - Warm and dry DS: Data Data Completed and Pending Pending studies at discharge: Pending at discharge 03/25/23 10:55 Surgical [PTH] Routine Discharge Plan Discharge Attending physician on discharge: Flako Mendoza Consulting providers: Adrian Brooke Discharging Clinician: Flako Mendoza Anticipated Discharge Date/Time: 03/25/23 14:21 Patient Disposition: Home, Self-Care Activity: as tolerated Diet: bland Discharge Instructions: Take precautions to avoid falls. Rise slowly from a lying or sitting position. Pause before standing or walking. Contact your doctor or call 911 and come to the Emergency Room if you have abdominal pain, nausea or other worrisome symptoms. Avoid NSAIDs (ibuprofen, naproxen, Aleve). Tylenol is safe to take. HOLD Xarelto for today. Resume Xarerlto tomorrow (03/26) Follow-up with your primary care provider in 1-2 weeks. Please call for appointment. Follow-up with GI in 2-3 weeks. Please call for an appointment. Thank you for using [facility] for your health care needs. Patient Instructions: Antibiotic Form, Rivaroxaban (By mouth) Stand Alone Forms: General Discharge Information Follow-up/Referrals: Dmitry Billings MD [Primary Care Provider] - Call for Appointment Adrian Brooke MD [Physician] - Call for Appointment Discharge Medications: Continued omega-3 fatty acids 500 mg capsule 500 mg PO DAILY metoprolol succinate 25 mg tablet extended release 24 hr 25 mg PO DAILY
--- NOTE | 2023-03-29 07:21 | PC.NURSE ---
Biopsy of small bowel, Gastric biopsy and esophageal biopsy show no malignancies. Dr. Mendoza aware of findings. Report faxed to Dr. Dmitry Billings.
== END 2023-03-25 15:21 | disposition home or self-care (01) | DRG 392 ==
LOC: ANHED 15:31 → ANH3MEDSUR 16:43
PROVIDERS: Internal Medicine Gastroenterology; Physician Assistant; Admitting Provider Hospitalist; Emergency Provider Nurse Practitioner Family; PCP Family Medicine; Visit Provider Internal Medicine
PROC: 0DJ08ZZ Inspection of Upper Intestinal Tract, Via Natural or Artificial Opening Endoscopic (ICD-10-PCS; CPT 43235; principal; 2023-03-25 13:30)
DX: K29.70 Gastritis, unspecified, without bleeding (principal); I47.1 Supraventricular tachycardia; E44.0 Moderate protein-calorie malnutrition; K20.90 Esophagitis, unspecified without bleeding; E86.0 Dehydration; I48.0 Paroxysmal atrial fibrillation; I10 Essential (primary) hypertension; C61 Malignant neoplasm of prostate; E78.5 Hyperlipidemia, unspecified; J44.9 Chronic obstructive pulmonary disease, unspecified; K57.30 Diverticulosis of large intestine without perforation or abscess without bleeding; R73.03 Prediabetes; R63.4 Abnormal weight loss; G47.33 Obstructive sleep apnea (adult) (pediatric); F41.9 Anxiety disorder, unspecified; Z96.651 Presence of right artificial knee joint; Z79.01 Long term (current) use of anticoagulants; Z87.891 Personal history of nicotine dependence; Z87.442 Personal history of urinary calculi
CPT/HCPCS: 36415; 80048; 80053; 81001; 83605; 83690; 83735; 85025; 85027; 85610; 85730; 88305; 94640; 96374; 99285; A9270; C9113; G0378; J2405; J2704; J7120

== ENCOUNTER 2023-04-12 07:27 | Outpatient (CLI) | payer MEDICARE, SELFPAY ==
--- NOTE | ~2023-04-12 | NM_ITS ---
EXAM: NM gastric emptying study DATE: 04/12/2023 13:09 INDICATION: Nausea TECHNIQUE: A gastric emptying study was performed using the methodology of Joe MILLS, et al. J Nucl Med 2007; 48:568-572. The patient was given a meal consisting of 2 scrambled eggs labeled with mCi T c-99m sulfur colloid, 2 slices of toast, two packages of jam, and approximately 120 mL of water. Simu ltaneous anterior and posterior 1-min images of the abdomen were obtained with the patient supine at multiple time points over a total period of 4 hours. The geometric mean of anterior and posterior vie ws was determined, and the percentage retention was calculated for each time point. COMPARISON: None. FINDINGS: Gastric retention of the radiotracer-labeled meal was 81%, 59%, and 29% at the 1-hour, 2-hour, and 4- hour time points, respectively. With this technique, apparent rapid gastric emptying is suggested by <30% gastric retention at 1 hour. Delayed gastric emptying is defined by gastric retention of >90% at 1 hour, >60% retention at 2 hours, or >10% retention at 4 hours. IMPRESSION: 1. Delayed gastric emptying. Reviewed, dictated and finalized at location A.
== END 2023-04-12 07:28 | disposition home or self-care (01) ==
PROVIDERS: PCP Family Medicine; Visit Provider Internal Medicine Gastroenterology
DX: R11.0 Nausea (principal); R63.4 Abnormal weight loss; R68.81 Early satiety; K30 Functional dyspepsia
CPT/HCPCS: 78264; A9541

== ENCOUNTER 2023-12-16 12:48 | Outpatient (CLI) | payer MEDICARE, SELFPAY ==
--- NOTE | ~2023-12-16 | CT_ITS ---
EXAMINATION: CT abdomen pelvis wo con DATE: 12/16/2023 13:09 INDICATION: Other intra-abdominal and pelvic swelling. TECHNIQUE: Computed tomography (CT) of the abdomen and pelvis was performed without intravenous contr ast. Automated exposure control and iterative reconstruction technique were employed. The dose-length product was 365.89 mGy-cm. COMPARISON: CT abdomen and pelvis 03/08/2023 FINDINGS: The visualized portions of the lung bases demonstrate mild bronchiectasis. No pericardial e ffusion. The heart size is normal. There are coronary artery calcifications. No pericardial effusion. The liver, gallbladder, spleen, pancreas, and adrenal glands are normal. There are cysts in right ki dney measuring up to 7.7 cm. There is focal volume loss of the left kidney inferior pole. There is no urolithiasis. The prostate is mildly enlarged. There are brachytherapy seeds in the prostate. There is diverticulosis of the colon without evidence of diverticulitis. The appendix is normal. There are no pathologically enlarged lymph nodes. There is calcified atherosclerosis of the aorta and many of t he other arteries. There is a left inguinal hernia containing fat and trace ascites. There is lumbar dextroscoliosis and severe spondylosis. IMPRESSION: 1. Left inguinal hernia containing fat and trace ascites. Reviewed, dictated and finalized at location E.
== END 2023-12-16 12:49 | disposition home or self-care (01) ==
LOC: ANHIMG 12:49
PROVIDERS: PCP Family Medicine; Visit Provider Surgery
DX: R19.09 Other intra-abdominal and pelvic swelling, mass and lump (principal); K40.90 Unilateral inguinal hernia, without obstruction or gangrene, not specified as recurrent
CPT/HCPCS: 74176